=== PATIENT | male | born 1980 | race Caucasian/White ===

== ENCOUNTER 2017-03-06 16:22 | Emergency (ER) | payer OTHER ==
[2017-03-06 18:08] VITALS: BP 125/78
--- NOTE | 2017-03-06 20:44 | Emergency Department Report ---
ED Lower Extremity HPI - General Chief Complaint: Extremity Injury, Lower Stated Complaint: RT LEG PAIN Time Seen by Provider: 03/06/17 20:37 Source: patient, family Mode of arrival: Wheelchair Limitations: No Limitations - History of Present Illness Initial Comments: 36-year-old -[place]ames[place] male with a history of HIV positive history of neurofibromatosis and a history of herniated disc comes in today for complaint of right leg pain. Patient reports that he has been out of his gabapentin. Patient reports that the pain radiates down his right buttock and right posterior leg. Patient reports that the pain is severe. He was last seen by his surgeon which is Dr. Guillaume at [facility] was about a month ago. He reports that he is scheduled for surgery on 04/01/2017 for 2 cyst removal from his spine. MD Complaint: hip injury -: month(s) (1) Severity scale (0 -10): 10 Improves With: nothing Worsens With: movement - Related Data Previous Rx's Medication Instructions Recorded Last Taken Type Acetaminophen with Codeine 1 tab PO Q6HR PRN #20 tab 03/06/17 Unknown Rx [Acetaminophen-Codeine #4 TAB] Gabapentin [Neurontin] 300 mg PO Q8HR #90 capsule 03/06/17 Unknown Rx Allergies Allergy/AdvReac Type Severity Reaction Status Date / Time No Known Allergies Allergy Unverified 03/06/17 18:03 ED Review of Systems ROS: Stated complaint: RT LEG PAIN Other details as noted in HPI ED Past Medical Hx - Past Medical History Previous Medical History?: Yes Hx HIV: Yes Additional medical history: Herniated disc, Back pain, Neurofibromytosis lung disease - Surgical History Past Surgical History?: No - Social History Smoking Status: Former Smoker Substance Use Type: Alcohol, Prescribed - Medications Home Medications: Home Medications Medication Instructions Recorded Confirmed Last Taken Type Acetaminophen with Codeine 1 tab PO Q6HR PRN #20 tab 03/06/17 Unknown Rx [Acetaminophen-Codeine #4 TAB] Gabapentin [Neurontin] 300 mg PO Q8HR #90 capsule 03/06/17 Unknown Rx ED Physical Exam - General Limitations: No Limitations General appearance: alert, in no apparent distress, cachectic - Head Head exam: Present: atraumatic, normocephalic - Eye Eye exam: Present: normal appearance, EOMI - ENT ENT exam: Present: mucous membranes moist - Respiratory Respiratory exam: Present: normal lung sounds bilaterally - Cardiovascular Cardiovascular Exam: Present: regular rate, normal rhythm, normal heart sounds - GI/Abdominal GI/Abdominal exam: Present: soft. Absent: distended, tenderness - Expanded Back Exam Expanded Back exam: Sciatic Notch Tenderness: Right, Positive Straight Leg Raise: Right, Negative Straight Leg Raising: Left - Neurological Exam Neurological exam: Present: alert, oriented X3 - Psychiatric Psychiatric exam: Present: normal affect, normal mood - Skin Skin exam: Present: warm, dry, intact ED Course Vital Signs 03/06/17 18:04 Temperature 98.2 F Pulse Rate 82 Respiratory 18 Rate Blood Pressure 125/78 O2 Sat by Pulse 100 Oximetry ED Lower Extremity MDM - Medical Decision Making Patient has been interviewed and evaluated by this provider Christofer. Discussed patient that he needs to be followed up by pain management. We will give him a few Tylenol No. 3's for his pain refill his gabapentin and for him to keep his appointment with Dr. Guillaume at [facility] for his surgery on 04/01/2017. Patient verbalized understanding. Critical care attestation.: If time is entered above; I have spent that time in minutes in the direct care of this critically ill patient, excluding procedure time. ED Disposition Clinical Impression: HIV disease, Neurofibromatosis Herniated disc Qualifiers: Spinal region: lumbosacral Qualified Code(s): M51.27 - Other intervertebral disc displacement, lumbosacral region Disposition: DISCHARGED TO HOME OR SELFCARE Is pt being admited?: No Does the pt Need Aspirin: No Condition: Stable Instructions: Lumbar Radiculopathy (ED), Chronic Back Pain (ED) Additional Instructions: Please take pain medication as prescribed. Please do not operate heavy machinery while taking the Tylenol No. 4. Follow-up with your surgeon Dr. Guillaume at [facility] area keep your surgical appointment for 04/01/2017. Prescriptions: Acetaminophen with Codeine [Acetaminophen-Codeine #4 TAB] 1 tab PO Q6HR PRN #20 tab PRN Reason: Pain Gabapentin [Neurontin] 300 mg PO Q8HR #90 capsule Referrals: your,provider [Other] - 3-5 Days PRIMARY CARE, [Primary Care Provider] - 3-5 Days [facility] [Provider Group] - 3-5 Days PAIN SPECIALIST [facility] [place] [Provider Group] - 3-5 Days
[2017-03-06] MEDS: NORCO 7.5/325 PO ONE (21:17)
== END 2017-03-06 21:20 | disposition home or self-care (01) ==
LOC: ED 16:22
DX: B20 Human immunodeficiency virus [HIV] disease (principal); Q85.00 Neurofibromatosis, unspecified; M51.27 Other intervertebral disc displacement, lumbosacral region; Z87.891 Personal history of nicotine dependence
CPT/HCPCS: 99282

== ENCOUNTER 2017-08-20 15:00 | Emergency (ER) | payer MEDICARE, OTHER ==
[2017-08-20] MEDS ORDERED: TYLENOL PO ONE (15:19)
[2017-08-20] MEDS ORDERED: TYLENOL ONE (15:23)
[2017-08-20 15:37] LABS: Hematocrit 33.8 % (35.5-45.6); Mean Corpuscular HGB Conc 33 % (32-34); Mean Corpuscular Hemoglobin 29 pg (28-32); Mean Corpuscular Volume 88 fl (84-94); Platelet Count 339 K/mm3 (140-440); Red Blood Count 3.84 M/mm3 (3.65-5.03); Red Cell Distribution Width 16.8 % (13.2-15.2); White Blood Count 6.9 K/mm3 (4.5-11.0)
[2017-08-20 16:02] LABS: Anion Gap 16 mmol/L; BUN/Creatinine Ratio 11; Blood Urea Nitrogen 10 mg/dL (9-20); Calcium 8.7 mg/dL (8.4-10.2); Carbon Dioxide 23 mmol/L (22-30); Glucose 83 mg/dL (75-100); Potassium 3.2 mmol/L (3.6-5.0); Sodium 140 mmol/L (137-145)
[2017-08-20 18:55] LABS: Bacteria,Urine 1+ /HPF (Negative); Bilirubin,Urine NEG (Negative); Blood,Urine NEG (Negative); Ketones,Urine NEG (Negative); Leukocyte Esterase,Urine NEG (Negative); Nitrite,Urine NEG (Negative); Protein,Urine <15 mg/dL mg/dL (Negative)
[2017-08-20] MEDS ORDERED: ZOFRAN IV ONE (22:31)
[2017-08-20] MEDS ORDERED: DILAUDID IV ONE (22:31)
[2017-08-20] MEDS ORDERED: TORADOL IV ONE (22:31)
[2017-08-20 22:49] LABS: Magnesium 3.4 mg/dL (1.7-2.3)
[2017-08-21] MEDS ORDERED: NEURONTIN PO ONE (00:04)
[2017-08-21] MEDS ORDERED: DILAUDID IV ONE (00:04)
[2017-08-21] MEDS ORDERED: ATIVAN IV ONE (00:04)
--- NOTE | 2017-08-21 01:16 | Emergency Department Report ---
ED General Adult HPI - General Chief complaint: Pain General Stated complaint: NECK/BACK/LEG PAIN Time Seen by Provider: 08/20/17 22:19 Source: patient, EMS Mode of arrival: Wheelchair Limitations: No Limitations - History of Present Illness Initial comments: 36-year-old male with a past medical history of AIDS with last CD4 96 on 2016 presents to the hospital with complaints of pain all over. Patient complains of pain to back and legs. Patient have an intermittent spasms of right thigh. Patient has history of chronic pain and peripheral neuropathy and ran out of his Percocet and Neurontin yesterday. Patient persistently referring to a surgery which she had multiple cysts removed. Previous medical record reviewed and as per 08/02/2017 hospitalist discharge summary patient had a anterior and posterior fusion of his spine in 06/26/2017 And erosive esophagitis. Patient has neurofibromatosis with multiple skin lesions. Patient also complains of a bone to his right buttock. Severity scale (0 -10): 10 - Related Data Home Medications Medication Instructions Recorded Confirmed Last Taken Descovy 200-25 mg Tablet 1 tab PO DAILY 08/02/17 08/21/17 08/20/17 Prezcobix 800 mg-150 mg (Nf) 1 tab PO DAILY 08/02/17 08/21/17 08/20/17 Fluconazole 200 mg PO DAILY 08/21/17 08/21/17 08/21/17 Levetiracetam 750 mg PO BID 08/21/17 08/21/17 08/20/17 Previous Rx's Medication Instructions Recorded Last Taken Type Fluconazole [Diflucan TAB] 200 mg PO QDAY #14 tablet 08/03/17 08/20/17 Rx Bacitracin/Pramoxine/Aloe Vera 1 applicatio TP TID #1 oint...g. 08/21/17 Unknown Rx [Bacitraycin Plus Ointment] Cyclobenzaprine HCl [Flexeril 5 MG 5 mg PO TID PRN #20 tab 08/21/17 Unknown Rx TAB] Gabapentin [Neurontin] 300 mg PO Q8HR #90 capsule 08/21/17 Unknown Rx Ibuprofen [Motrin] 400 mg PO Q8H PRN #30 tablet 08/21/17 Unknown Rx oxyCODONE /ACETAMINOPHEN [Percocet 1 tab PO Q4HR #20 tab 08/21/17 Unknown Rx 5/325] Allergies Allergy/AdvReac Type Severity Reaction Status Date / Time No Known Allergies Allergy Unverified 03/06/17 18:03 ED Review of Systems ROS: Stated complaint: NECK/BACK/LEG PAIN Other details as noted in HPI Comment: All other systems reviewed and negative Other: Constitutional: No fevers chills Eyes: No eye pain visual changes or discharge ENT: No ear pain or throat pain Neck: Denies pain Respiratory: Denies cough wheezing shortness of breath Cardiovascular: Denies chest pain, palpitations, syncope Endocrine: Denies excessive sweating, intolerance to cold, increased thirst GI: Denies abdominal pain, nausea, vomiting, diarrhea, constipation, melena hematochezia : Denies dysuria, Musculoskeletal: As per HPI Skin: As per HPI Neurologic: Denies headache, numbness, weakness Psychiatric: Denies suicidal ideation, hallucinations ED Past Medical Hx - Past Medical History Hx Hypertension: No Hx CVA: No Hx Heart Attack/AMI: No Hx Congestive Heart Failure: No Hx Diabetes: No Hx Deep Vein Thrombosis: No Hx Pulmonary Embolism: No Hx GERD: No Hx Liver Disease: No (denies) Hx Renal Disease: No Hx Sickle Cell Disease: No Hx Arthritis: No Hx Headaches / Migraines: No Hx Seizures: No Hx Kidney Stones: No Hx Psychiatric Treatment: No Hx Asthma: No Hx COPD: No Hx Tuberculosis: No Hx Dementia: No Hx HIV: Yes Additional medical history: Herniated disc, Back pain, Neurofibromytosis lung disease (pt denies in lungs; he states he has never been told this)//had cyst removed from spine(2017) - Surgical History Additional Surgical History: CYCST REMOVAL FROM SPINE - Social History Smoking Status: Former Smoker Substance Use Type: None - Medications Home Medications: Home Medications Medication Instructions Recorded Confirmed Last Taken Type Descovy 200-25 mg Tablet 1 tab PO DAILY 08/02/17 08/21/17 08/20/17 History Prezcobix 800 mg-150 mg (Nf) 1 tab PO DAILY 08/02/17 08/21/17 08/20/17 History Fluconazole [Diflucan TAB] 200 mg PO QDAY #14 tablet 08/03/17 08/21/17 08/20/17 Rx Bacitracin/Pramoxine/Aloe Vera 1 applicatio TP TID #1 oint...g. 08/21/17 Unknown Rx [Bacitraycin Plus Ointment] Cyclobenzaprine HCl [Flexeril 5 MG 5 mg PO TID PRN #20 tab 08/21/17 Unknown Rx TAB] Fluconazole 200 mg PO DAILY 08/21/17 08/21/17 08/21/17 History Gabapentin [Neurontin] 300 mg PO Q8HR #90 capsule 08/21/17 Unknown Rx Ibuprofen [Motrin] 400 mg PO Q8H PRN #30 tablet 08/21/17 Unknown Rx Levetiracetam 750 mg PO BID 08/21/17 08/21/17 08/20/17 History oxyCODONE /ACETAMINOPHEN [Percocet 1 tab PO Q4HR #20 tab 08/21/17 Unknown Rx 5/325] ED Physical Exam - General Limitations: No Limitations - Other Other exam information: General: Generalized weakness, cachectic Head exam: Atraumatic, normocephalic Eyes exam: Normal appearance ENT: Moist mucous membrane Neck exam: Normal inspection, full range of motion, no meningismus nontender Respiratory exam: Clear to auscultation bilateral, no wheezes, rales, crackles Cardiovascular: Normal rate and rhythm, normal heart sounds Abdomen: Soft, nondistended, and nontender, with normal bowel sounds, no rebound, or guarding Extremity: With any movement patient repeatedly has spasms of his right thigh that are severe and intense. No erythema, warmth, or edema noted to the extremities. Back: Normal Inspection, full range of motion, no tenderness Neurologic: Alert, oriented x3, cranial nerves intact, no motor or sensory deficit Psychiatric: normal affect, normal mood Skin: 1 cm circular ulceration to the right upper buttock. Diffuse Neurofibromatosis lesions ED Course Vital Signs 08/20/17 08/20/17 08/20/17 15:13 15:50 18:23 Temperature 97.9 F Pulse Rate 106 H Respiratory 20 18 Rate Blood Pressure 143/91 Blood Pressure [Left] O2 Sat by Pulse 100 100 Oximetry 08/20/17 08/20/17 08/20/17 18:31 18:41 18:51 Temperature Pulse Rate Respiratory Rate Blood Pressure 132/86 132/86 132/86 Blood Pressure [Left] O2 Sat by Pulse 100 100 100 Oximetry 08/20/17 08/20/17 08/20/17 19:00 19:11 19:21 Temperature Pulse Rate Respiratory Rate Blood Pressure 124/74 124/74 124/74 Blood Pressure [Left] O2 Sat by Pulse 100 100 100 Oximetry 08/20/17 08/20/17 08/20/17 19:23 19:31 19:41 Temperature 98.1 F Pulse Rate 96 H Respiratory 16 Rate Blood Pressure 124/74 124/74 Blood Pressure 106/76 [Left] O2 Sat by Pulse 96 100 100 Oximetry 08/20/17 08/20/17 08/20/17 19:51 20:00 20:11 Temperature Pulse Rate Respiratory Rate Blood Pressure 124/74 126/81 126/81 Blood Pressure [Left] O2 Sat by Pulse 100 99 100 Oximetry 08/20/17 08/20/17 08/20/17 20:33 20:41 20:51 Temperature Pulse Rate Respiratory Rate Blood Pressure 126/81 126/81 126/81 Blood Pressure [Left] O2 Sat by Pulse 98 100 98 Oximetry 08/20/17 08/20/17 08/20/17 21:00 21:11 21:21 Temperature Pulse Rate Respiratory Rate Blood Pressure 126/77 126/77 126/81 Blood Pressure [Left] O2 Sat by Pulse 96 100 99 Oximetry 08/20/17 08/20/17 08/20/17 21:31 21:41 21:51 Temperature Pulse Rate Respiratory Rate Blood Pressure 126/81 126/81 126/81 Blood Pressure [Left] O2 Sat by Pulse 100 100 99 Oximetry 08/20/17 08/20/17 08/20/17 21:59 22:00 22:04 Temperature Pulse Rate Respiratory Rate Blood Pressure 126/77 127/78 126/77 Blood Pressure [Left] O2 Sat by Pulse 100 97 100 Oximetry 08/20/17 08/20/17 08/20/17 22:11 22:17 22:21 Temperature Pulse Rate Respiratory Rate Blood Pressure 127/78 127/78 127/78 Blood Pressure [Left] O2 Sat by Pulse 99 100 100 Oximetry 08/20/17 08/20/17 08/20/17 22:31 22:41 22:51 Temperature Pulse Rate Respiratory Rate Blood Pressure 127/78 127/78 127/78 Blood Pressure [Left] O2 Sat by Pulse 100 99 98 Oximetry 08/20/17 08/20/17 08/20/17 23:00 23:11 23:21 Temperature Pulse Rate Respiratory Rate Blood Pressure 131/79 131/79 131/79 Blood Pressure [Left] O2 Sat by Pulse 96 98 100 Oximetry 08/20/17 08/20/17 08/20/17 23:31 23:41 23:51 Temperature Pulse Rate Respiratory Rate Blood Pressure 131/79 131/79 131/79 Blood Pressure [Left] O2 Sat by Pulse 99 100 98 Oximetry 08/21/17 08/21/17 08/21/17 00:00 00:11 00:21 Temperature Pulse Rate Respiratory Rate Blood Pressure 119/70 119/70 119/70 Blood Pressure [Left] O2 Sat by Pulse 100 99 99 Oximetry 08/21/17 08/21/17 08/21/17 00:31 00:41 00:51 Temperature Pulse Rate Respiratory 20 Rate Blood Pressure 119/70 119/70 119/70 Blood Pressure [Left] O2 Sat by Pulse 98 100 99 Oximetry 08/21/17 01:00 Temperature Pulse Rate Respiratory Rate Blood Pressure 144/85 Blood Pressure [Left] O2 Sat by Pulse 100 Oximetry - Reevaluation(s) Reevaluation #1: 08/21/17 01:27 Patient improved after receiving Dilaudid and Ativan. Given Neurontin dose 08/21/17 01:27 ED Medical Decision Making - Lab Data Result diagrams: 08/20/17 15:23 08/20/17 15:23 Lab Results 08/20/17 08/20/17 08/20/17 Range/Units 15:23 15:23 15:23 WBC 6.9 (4.5-11.0) K/mm3 RBC 3.84 (3.65-5.03) M/mm3 Hgb 11.0 L (11.8-15.2) gm/dl Hct 33.8 L (35.5-45.6) % MCV 88 (84-94) fl MCH 29 (28-32) pg MCHC 33 (32-34) % RDW 16.8 H (13.2-15.2) % Plt Count 339 (140-440) K/mm3 Sodium 140 (137-145) mmol/L Potassium 3.2 L (3.6-5.0) mmol/L Chloride 104.0 (98-107) mmol/L Carbon Dioxide 23 (22-30) mmol/L Anion Gap 16 mmol/L BUN 10 (9-20) mg/dL Creatinine 0.9 (0.8-1.5) mg/dL Estimated GFR > 60 ml/min BUN/Creatinine Ratio 11 % Glucose 83 (75-100) mg/dL Calcium 8.7 (8.4-10.2) mg/dL Magnesium 3.40 H (1.7-2.3) mg/dL Total Creatine Kinase 196 H (55-170) units/L Urine Color (Yellow) Urine Turbidity (Clear) Urine pH (5.0-7.0) Ur Specific [place] (1.003-1.030) Urine Protein (Negative) mg/dL Urine Glucose (UA) (Negative) mg/dL Urine Ketones (Negative) mg/dL Urine Blood (Negative) Urine Nitrite (Negative) Urine Bilirubin (Negative) Urine Urobilinogen (<2.0) mg/dL Ur Leukocyte Esterase (Negative) Urine WBC (Auto) (0.0-6.0) /HPF Urine RBC (Auto) (0.0-6.0) /HPF Urine Bacteria (Auto) (Negative) /HPF 08/20/17 Range/Units 18:25 WBC (4.5-11.0) K/mm3 RBC (3.65-5.03) M/mm3 Hgb (11.8-15.2) gm/dl Hct (35.5-45.6) % MCV (84-94) fl MCH (28-32) pg MCHC (32-34) % RDW (13.2-15.2) % Plt Count (140-440) K/mm3 Sodium (137-145) mmol/L Potassium (3.6-5.0) mmol/L Chloride (98-107) mmol/L Carbon Dioxide (22-30) mmol/L Anion Gap mmol/L BUN (9-20) mg/dL Creatinine (0.8-1.5) mg/dL Estimated GFR ml/min BUN/Creatinine Ratio % Glucose (75-100) mg/dL Calcium (8.4-10.2) mg/dL Magnesium (1.7-2.3) mg/dL Total Creatine Kinase (55-170) units/L Urine Color Yellow (Yellow) Urine Turbidity Clear (Clear) Urine pH 5.0 (5.0-7.0) Ur Specific [place] 1.020 (1.003-1.030) Urine Protein <15 mg/dl (Negative) mg/dL Urine Glucose (UA) Neg (Negative) mg/dL Urine Ketones Neg (Negative) mg/dL Urine Blood Neg (Negative) Urine Nitrite Neg (Negative) Urine Bilirubin Neg (Negative) Urine Urobilinogen 2.0 (<2.0) mg/dL Ur Leukocyte Esterase Neg (Negative) Urine WBC (Auto) 2.0 (0.0-6.0) /HPF Urine RBC (Auto) 2.0 (0.0-6.0) /HPF Urine Bacteria (Auto) 1+ (Negative) /HPF - Medical Decision Making Patient be discharged home since symptoms secondary to chronic pain he rates a running out of his medication yesterday. Buttock wound does not appear to be infected. Local wound care will be recommended. Antibiotic ointment and dressing placed prior to discharge - Differential Diagnosis neuropathy, chronic pain, rhabdomyolysis, infection Critical Care Time: No Critical care attestation.: If time is entered above; I have spent that time in minutes in the direct care of this critically ill patient, excluding procedure time. ED Disposition Clinical Impression: Chronic pain, Peripheral neuropathy, AIDS, Hypokalemia, Clinical neurofibromatosis, Wound, open, buttock Disposition: DC-01 TO HOME OR SELFCARE Is pt being admited?: No Does the pt Need Aspirin: No Condition: Stable Instructions: Hypokalemia (ED), Chronic Pain (ED), Human Immunodeficiency Virus Transmission (ED), Peripheral Neuropathy (ED), Acute Wound Care (ED) Additional Instructions: Take the medication as prescribed. Follow-up with your doctor for further treatment. Your potassium was low. He received an oral dose of potassium here. Please increase your potassium through your diet as indicated by your discharge instructions. Return if symptoms worsen. Prescriptions: Bacitracin/Pramoxine/Aloe Vera [Bacitraycin Plus Ointment] 1 applicatio TP TID # 1 oint...g. Cyclobenzaprine HCl [Flexeril 5 MG TAB] 5 mg PO TID PRN #20 tab PRN Reason: Muscle Spasm Gabapentin [Neurontin] 300 mg PO Q8HR #90 capsule Ibuprofen [Motrin] 400 mg PO Q8H PRN #30 tablet PRN Reason: Pain oxyCODONE /ACETAMINOPHEN [Percocet 5/325] 1 tab PO Q4HR #20 tab Referrals: PRIMARY CARE, [Primary Care Provider] - 3-5 Days Time of Disposition: 01:14
[2017-08-21] MEDS ORDERED: TRIPLE ANTIBIOTIC TP ONE ×2 (01:28→03:25)
[2017-08-21 11:28] VITALS: BP 144/85
== END 2017-08-21 01:48 | disposition home or self-care (01) ==
LOC: ED 15:00
DX: S31.819A Unspecified open wound of right buttock, initial encounter (principal); G89.29 Other chronic pain; G62.9 Polyneuropathy, unspecified; E87.6 Hypokalemia; Q85.00 Neurofibromatosis, unspecified; B20 Human immunodeficiency virus [HIV] disease; Z87.891 Personal history of nicotine dependence; X58.XXXA Exposure to other specified factors, initial encounter; Y93.9 Activity, unspecified; Y99.9 Unspecified external cause status; Y92.9 Unspecified place or not applicable
CPT/HCPCS: 36415; 80048; 81001; 82550; 83735; 85027; 96374; 96375; 96376; 99284; J1170; J1885; J2060; J2405; A6250

== ENCOUNTER 2019-09-08 11:51 | Emergency (ER) | payer MEDICARE ==
--- NOTE | 2019-09-08 12:33 | Emergency Department Report ---
Blank Doc - Documentation Documentation: 39-year-old male that presents with URIs ymptoms. This initial assessment/diagnostic orders/clinical plan/treatment(s) is/are subject to change based on patient's health status, clinical progression and re- assessment by fellow clinical providers in the ED. Further treatment and workup at subsequent clinical providers discretion. Patient/guardians urged not to elope from the ED as their condition may be serious if not clinically assessed and managed. Initial orders include: 1- Patient sent to [facility] for further evaluation and treatment 2- xrays
[2019-09-08 12:34] VITALS: BP 149/90
--- NOTE | 2019-09-08 13:09 | XRay Report ---
CHEST 2 VIEWS INDICATION / CLINICAL INFORMATION: cough. COMPARISON: 09/27/2018 FINDINGS: SUPPORT DEVICES: None. HEART / MEDIASTINUM: No significant abnormality. LUNGS / PLEURA: Pleural based nodules along the right lateral chest are unchanged from prior imaging. Nodule in the right lower lobe is unchanged from previous exam. Pleural-based nodule in the right ap ex is also unchanged.No pneumothorax. ADDITIONAL FINDINGS: No significant additional findings. IMPRESSION: 1. Stable pleural-based nodules in the right chest and stable nodule right lower chest are noted. N o new abnormalities are identified. There has been no significant interval change. Signer Name: Daniel Kaur MD Signed: 09/08/2019 1:05 PM Workstation Name: [id number]
[2019-09-08] MEDS ORDERED: BENZONATATE 100 MG CAP PO ONE (14:37)
[2019-09-08] MEDS ORDERED: IPRATROPIUM/ALBUTEROL SULFATE 3 ML AMPUL.NEB IH ONE (14:37)
--- NOTE | 2019-09-08 14:59 | Emergency Department Report ---
HPI - General Chief Complaint: Upper Respiratory Infection Time Seen by Provider: 09/08/19 12:32 - HPI HPI: 39-year-old -[place] male, with a past medical history of HIV, seizures and neurofibromatosis, presents to the emergency department with a complaint of a 3 week history of a bad productive cough. He says that this has been going on since he got a flu shot. He tried some Mucinex for his symptoms without any relief. He does not have a primary care physician but follows up with a group called [facility] for infectious disease. No recent travel or sick contacts at home. He denies any chest pain, shortness of breath, nausea, vomi ting. He complains of a subjective fever last night. ED Past Medical Hx - Past Medical History Previous Medical History?: Yes Hx Hypertension: No Hx CVA: No Hx Heart Attack/AMI: No Hx Congestive Heart Failure: No Hx Diabetes: No Hx Deep Vein Thrombosis: No Hx Pulmonary Embolism: No Hx GERD: No Hx Liver Disease: (denies) Hx Renal Disease: No Hx Sickle Cell Disease: No Hx Arthritis: No Hx Headaches / Migraines: No Hx Seizures: Yes Hx Kidney Stones: No Hx Psychiatric Treatment: No Hx Asthma: No Hx COPD: No Hx Tuberculosis: No Hx Dementia: No Hx HIV: Yes Additional medical history: Neurofibromatosis - Surgical History Past Surgical History?: Yes Additional Surgical History: CYCST REMOVAL FROM SPINE - Social History Smoking Status: Never Smoker Substance Use Type: None - Medications Home Medications: Home Medications Medication Instructions Recorded Confirmed Last Taken Type Descovy 200-25 mg Tablet 1 tab PO DAILY 08/02/17 08/21/17 08/20/17 History Prezcobix 800 mg-150 mg (Nf) 1 tab PO DAILY 08/02/17 08/21/17 08/20/17 History Fluconazole [Diflucan TAB] 200 mg PO QDAY #14 tablet 08/03/17 08/21/17 08/20/17 Rx Bacitracin/Pramoxine/Aloe Vera 1 applicatio TP TID #1 oint...g. 08/21/17 U nknown Rx [Bacitraycin Plus Ointment] Cyclobenzaprine HCl [Flexeril 5 MG 5 mg PO TID PRN #20 tab 08/21/17 Unknown Rx TAB] Fluconazole 200 mg PO DAILY 08/21/17 08/21/17 08/21/17 History Gabapentin 300 mg PO Q8HR #90 capsule 08/21/17 Unknown Rx Ibuprofen [Motrin] 400 mg PO Q8H PRN #30 tablet 08/21/17 Unknown Rx Levetiracetam 750 mg PO BID 08/21/17 08/21/17 08/20/17 History oxyCODONE /ACETAMINOPHEN [Percocet 1 tab PO Q4HR #20 tab 08/21/17 Unknown Rx 5/325] Azithromycin [Zithromax Z-PHILIP] 250 mg PO DAILY #6 tablet 09/27/18 Unknown Rx levoFLOXacin [Levaquin TAB] 500 mg PO QDAY 7 Days #7 tablet 10/24/18 Unknown Rx predniSONE [Prednisone] 50 mg PO DAILY 5 Days #5 tablet 10/24/18 Unknown Rx ALBUTEROL Inhaler (OR & NICU) 2 puff IH QID PRN #1 device 09/08/19 Unknown Rx [ProAir HFA Inhaler] Benzonatate [Tessalon Perles] 100 mg PO Q8HR PRN #20 capsule 09/08/19 Unknown Rx guaiFENesin/CODEINE [Robitussin AC] 5 ml PO Q6H PRN #100 oral.liqd 09/08/19 Unknown Rx ED Review of Systems ROS: Stated complaint: BAD COUGH Other details as noted in HPI Comment: All other systems reviewed and negative Constitutional: chills, fever (subjective) Eyes: denies: eye pain, vision change ENT: denies: ear pain, throat pain Respiratory: cough. denies: shortness of breath Cardiovascular: denies: chest pain, edema Gastrointestinal: denies: abdominal pain, vomiting Musculoskeletal: denies: back pain, arthralgia Physical Exam - Physical Exam Vital Signs: Vital Signs 09/08/19 12:32 Temperature 98.9 F Pulse Rate 99 H Respiratory 20 Rate Blood Pressure 149/90 O2 Sat by Pulse 100 Oximetry Physical Exam: GENERAL: The patient is well-developed well-nourished. HENT: Normocephalic. Atraumatic. Patient has moist mucous membranes. EYES: Extraocular motions are intact. NECK: Supple. Trachea is midline. CHEST/LUNGS: A productive sounding cough is heard during examination. Mild expiratory wheezing. No tachypnea or accessory muscle use. There is no respiratory distress noted. HEART/CARDIOVASCULAR: Regular. There is no tachycardia. There is no murmur. ABDOMEN: Abdomen is soft, nontender. Patient has normal bowel sounds. There is no abdominal distention. SKIN: Skin is warm and dry. NEURO: The patient is awake, alert, and oriented. The patient is cooperative. The patient has no focal neurologic deficits. Normal speech. MUSCULOSKELETAL: There is no tenderness or deformity. There is no limitation range of motion. There is no evidence of acute injury. ED Course Vital Signs 09/08/19 12:32 Temperature 98.9 F Pulse Rate 99 H Respiratory 20 Rate Blood Pressure 149/90 O2 Sat by Pulse 100 Oximetry ED Medical Decision Making - Radiology Data Radiology results: image reviewed interpreted by me: Chest x-ray does not show any acute process. There are no pleural effusions, obvious pneumonia and there is no pneumothorax. - Medical Decision Making This patient presents with a three-week history of a productive cough that he says started after getting the flu shot. A chest x-ray was done that does not show any pneumonia, pleural effusions, pneumothorax, or any other acute process. Vital signs are stable including being afebrile. Patient was given a breathing treatment and a Tessalon Perle. Upon reevaluation he is feeling improved but does still have this productive cough. He'll be discharged home to follow-up with his primary care physician/infectious disease doctor. He will be given a prescription for Tessalon Perles, Robitussin-AC and an albuterol inhaler. He will return to the ER with any worsening of his symptoms or any acute distress. - Differential Diagnosis pneumonia, bronchitis, asthma, viral URI Critical Care Time: No Critical care attestation.: If time is entered above; I have spent that time in minutes in the direct care of this critically ill patient, excluding procedure time. ED Disposition Clinical Impression: Bronchitis, History of HIV infection Disposition: DC-01 TO HOME OR SELFCARE Is pt being admited?: No Condition: Stable Instructions: Acute Bronchitis (ED) Additional Instructions: Please follow-up with a primary care physician and your infectious disease physician. Return to the emergency Department with any worsening of your symptoms or any acute distress. You have been prescribed a medication that is sedating and therefore should not be taken prior to driving, working, and responsible for children and in no way should be mixed with alcohol of any quantity. Prescriptions: ALBUTEROL Inhaler (OR & NICU) [ProAir HFA Inhaler] 2 puff IH QID PRN #1 device PRN Reason: Shortness Of Breath guaiFENesin/CODEINE [Robitussin AC] 5 ml PO Q6H PRN #100 oral.liqd PRN Reason: Cough Benzonatate [Tessalon Perles] 100 mg PO Q8HR PRN #20 capsule PRN Reason: Cough Referrals: BETTY JENSEN [Other] - 2-3 Days Time of Disposition: 16:17
== END 2019-09-08 16:24 | disposition home or self-care (01) ==
LOC: ED 11:51
DX: J40 Bronchitis, not specified as acute or chronic (principal); B20 Human immunodeficiency virus [HIV] disease; Z79.899 Other long term (current) drug therapy; Z98.890 Other specified postprocedural states; Z88.6 Allergy status to analgesic agent
CPT/HCPCS: 71046; 94640; 94644

== ENCOUNTER 2019-09-15 09:42 | Emergency (ER) | payer MEDICARE ==
[2019-09-15 09:53] VITALS: BP 151/91
--- NOTE | 2019-09-15 11:05 | Emergency Department Report ---
- General Chief Complaint: Upper Respiratory Infection Stated Complaint: COUGHING Time Seen by Provider: 09/15/19 10:53 Source: patient Mode of arrival: Ambulatory Limitations: No Limitations - History of Present Illness Initial Comments: Patient is a 39-year-old [place] male with a past history of HIV and neurofibromatosis was presenting with 3 weeks of continuous cough. Patient was here 3 days ago for same symptoms. Patient States His Cough Began after Getting a Flu Shot Has Been Continuous for the Last 3 Weeks. Patient Was Diagnosed with Bronchitis 3 Days Ago Started on Cough Syrup Albuterol Inhaler. Patient States Is Been No Change in His Cough. Cough Is Productive of Yellow Green Sputum. Denies Fever Nausea Vomiting. Patient's Has Associated Body Aches. - Related Data Home Medications Medication Instructions Recorded Confirmed Last Taken Descovy 200-25 mg Tablet 1 tab PO DAILY 08/02/17 08/21/17 08/20/17 Prezcobix 800 mg-150 mg (Nf) 1 tab PO DAILY 08/02/17 08/21/17 08/20/17 Fluconazole 200 mg PO DAILY 08/21/17 08/21/17 08/21/17 Levetiracetam 750 mg PO BID 08/21/17 08/21/17 08/20/17 Previous Rx's Medication Instructions Recorded Last Taken Type Fluconazole [Diflucan TAB] 200 mg PO QDAY #14 tablet 08/03/17 08/20/17 Rx Bacitracin/Pramoxine/Aloe Vera 1 applicatio TP TID #1 oint...g. 08/21/17 Unknown Rx [Bacitraycin Plus Ointment] Cyclobenzaprine HCl [Flexeril 5 MG 5 mg PO TID PRN #20 tab 08/21/17 Unknown Rx TAB] Gabapentin 300 mg PO Q8HR #90 capsule 08/21/17 Unknown Rx Ibuprofen [Motrin] 400 mg PO Q8H PRN #30 tablet 08/21/17 Unknown Rx oxyCODONE /ACETAMINOPHEN [Percocet 1 tab PO Q4HR #20 tab 08/21/17 Unknown Rx 5/325] Azithromycin [Zithromax Z-PHILIP] 250 mg PO DAILY #6 tablet 09/27/18 Unknown Rx levoFLOXacin [Levaquin TAB] 500 mg PO QDAY 7 Days #7 tablet 10/24/18 Unknown Rx predniSONE [Prednisone] 50 mg PO DAILY 5 Days #5 tablet 10/24/18 Unknown Rx ALBUTEROL Inhaler (OR & NICU) 2 puff IH QID PRN #1 device 09/08/19 Unknown Rx [ProAir HFA Inhaler] Benzonatate [Tessalon Perles] 100 mg PO Q8HR PRN #20 capsule 09/08/19 Unknown Rx guaiFENesin/CODEINE [Robitussin AC] 5 ml PO Q6H PRN #100 oral.liqd 09/08/19 Unknown Rx Azithromycin [Zithromax Z-PHILIP] 250 mg PO DAILY #6 tablet 09/15/19 Unknown Rx Sulfamethoxazole/Trimethoprim 1 each PO BID #14 tablet 09/15/19 Unknown Rx [Bactrim DS TAB] guaiFENesin/CODEINE [Robitussin AC] 5 ml PO Q6HR PRN #100 oral.liqd 09/15/19 Unknown Rx predniSONE [Deltasone] 20 mg PO QDAY #5 tab 09/15/19 Unknown Rx Allergies Allergy/AdvReac Type Severity Reaction Status Date / Time tramadol [From Ultram] AdvReac Seizure Verified 10/24/18 14:56 ED Review of Systems ROS: Stated complaint: COUGHING Other details as noted in HPI Comment: All other systems reviewed and negative ED Past Medical Hx - Past Medical History Previous Medical History?: Yes Hx Hypertension: No Hx CVA: No Hx Heart Attack/AMI: No Hx Congestive Heart Failure: No Hx Diabetes: No Hx Deep Vein Thrombosis: No Hx Pulmonary Embolism: No Hx GERD: No Hx Liver Disease: (denies) Hx Renal Disease: No Hx Sickle Cell Disease: No Hx Arthritis: No Hx Headaches / Migraines: No Hx Seizures: Yes Hx Kidney Stones: No Hx Psychiatric Treatment: No Hx Asthma: No Hx COPD: No Hx Tuberculosis: No Hx Dementia: No Hx HIV: Yes Additional medical history: Neurofibromatosis - Surgical History Past Surgical History?: Yes Additional Surgical History: CYCST REMOVAL FROM SPINE - Social History Smoking Status: Never Smoker Substance Use Type: None - Medications Home Medications: Home Medications Medication Instructions Recorded Confirmed Last Taken Type Descovy 200-25 mg Tablet 1 tab PO DAILY 08/02/17 08/21/17 08/20/17 History Prezcobix 800 mg-150 mg (Nf) 1 tab PO DAILY 0908/21/17 08/20/17 History Fluconazole [Diflucan TAB] 200 mg PO QDAY #14 tablet 08/03/17 08/21/17 08/20/17 Rx Bacitracin/Pramoxine/Aloe Vera 1 applicatio TP TID #1 oint...g. 08/21/17 Unknown Rx [Bacitraycin Plus Ointment] Cyclobenzaprine HCl [Flexeril 5 MG 5 mg PO TID PRN #20 tab 08/21/17 Unknown Rx TAB] Fluconazole 200 mg PO DAILY 08/21/17 08/21/17 08/21/17 History Gabapentin 300 mg PO Q8HR #90 capsule 08/21/17 Unknown Rx Ibuprofen [Motrin] 400 mg PO Q8H PRN #30 tablet 08/21/17 Unknown Rx Levetiracetam 750 mg PO BID 08/21/17 08/21/17 08/20/17 History oxyCODONE /ACETAMINOPHEN [Percocet 1 tab PO Q4HR #20 tab 08/21/17 Unknown Rx 5/325] Azithromycin [Zithromax Z-PHILIP] 250 mg PO DAILY #6 tablet 09/27/18 Unknown Rx levoFLOXacin [Levaquin TAB] 500 mg PO QDAY 7 Days #7 tablet 10/24/18 Unknown Rx predniSONE [Prednisone] 50 mg PO DAILY 5 Days #5 tablet 10/24/18 Unknown Rx ALBUTEROL Inhaler (OR & NICU) 2 puff IH QID PRN #1 device 09/08/19 Unknown Rx [ProAir HFA Inhaler] Benzonatate [Tessalon Perles] 100 mg PO Q8HR PRN #20 capsule 09/08/19 Unknown Rx guaiFENesin/CODEINE [Robitussin AC] 5 ml PO Q6H PRN #100 oral.liqd 09/08/19 Unknown Rx Azithromycin [Zithromax Z-PHILIP] 250 mg PO DAILY #6 tablet 09/15/19 Unknown Rx Sulfamethoxazole/Trimethoprim 1 each PO BID #14 tablet 09/15/19 Unknown Rx [Bactrim DS TAB] guaiFENesin/CODEINE [Robitussin AC] 5 ml PO Q6HR PRN #100 oral.liqd 09/15/19 Unknown Rx predniSONE [Deltasone] 20 mg PO QDAY #5 tab 09/15/19 Unknown Rx ED Physical Exam - General Limitations: No Limitations General appearance: alert, in no apparent distress - Head Head exam: Present: atraumatic, normocephalic - Eye Eye exam: Present: normal appearance - ENT ENT exam: Present: mucous membranes moist - Neck Neck exam: Present: normal inspection - Respiratory Respiratory exam: Present: normal lung sounds bilaterally. Absent: respiratory distress, wheezes, rales, rhonchi - Cardiovascular Cardiovascular Exam: Present: regular rate, normal rhythm, normal heart sounds. Absent: systolic murmur, diastolic murmur, rubs, gallop - GI/Abdominal GI/Abdominal exam: Present: soft, normal bowel sounds. Absent: distended, tenderness, guarding, rebound - Rectal Rectal exam: Present: deferred - Extremities Exam Extremities exam: Present: normal inspection - Back Exam Back exam: Present: normal inspection - Neurological Exam Neurological exam: Present: alert, oriented X3 - Psychiatric Psychiatric exam: Present: normal affect, normal mood - Skin Skin exam: Present: warm, dry, intact, normal color. Absent: rash ED Course Vital Signs 09/15/19 09:51 Temperature 98.4 F Pulse Rate 107 H Respiratory 18 Rate Blood Pressure 151/91 O2 Sat by Pulse 95 Oximetry ED Medical Decision Making - Medical Decision Making Patient is a 39-year-old -[place] male with past medical history HIV who is presenting with a productive cough. Because of the duration of the patient's symptoms and because the patient is not improving with conservative treatment antibiotics will be added. Patient also has continuation of his cough syrup. Patient was started on short course of prednisone as well. Critical care attestation.: If time is entered above; I have spent that time in minutes in the direct care of this critically ill patient, excluding procedure time. ED Disposition Clinical Impression: Bronchitis Disposition: DC-01 TO HOME OR SELFCARE Is pt being admited?: No Does the pt Need Aspirin: No Condition: Stable Instructions: Chronic Bronchitis (ED) Time of Disposition: 11:05
== END 2019-09-15 14:00 | disposition home or self-care (01) ==
LOC: ED 09:42
DX: J40 Bronchitis, not specified as acute or chronic (principal)
CPT/HCPCS: 99281

== ENCOUNTER 2019-10-27 23:56 | Emergency (ER) | payer MEDICARE ==
[2019-10-28 00:12] VITALS: BP 143/75
== END 2019-10-28 05:00 | disposition left against medical advice (07) ==
LOC: ED 23:56
DX: R06.6 Hiccough (principal); Z53.21 Procedure and treatment not carried out due to patient leaving prior to being seen by health care provider

== ENCOUNTER 2019-10-29 11:32 | Emergency (ER) | payer MEDICARE ==
[2019-10-29 11:45] VITALS: BP 138/82
--- NOTE | 2019-10-29 12:22 | Emergency Department Report ---
ED Shortness of Breath HPI - General Chief Complaint: Dyspnea/Respdistress Stated Complaint: HICCUPS/LINDSAY Time Seen by Provider: 10/29/19 11:58 Source: patient Mode of arrival: Ambulatory Limitations: No Limitations - History of Present Illness Initial Comments: 39-year-old male with a history of HIV and recent diagnosis of COPD presents to the ER today complaining of productive cough, with yellow sputum, shortness of breath and wheezing and a cups for the past 2 weeks. He reports rhinorrhea and nasal congestion. He states that he was diagnosed as COPD about one week ago by his primary care doctor at the [facility]. He did mention his symptoms to his doctor at that time was prescribed Zithromax, and prednisone, and was started on albuterol MDIs. He states that he has completed the Zithromax and the prednisone, he felt like he was getting better, but his symptoms started to flareup again. He has been using his albuterol inhaler every 3 hours. He states the hiccups is what seems to be bothering him the most. He denies any CP, fever, chills, abdominal pain, nausea, vomiting or any other symptoms. He states he has been compliant with his HIV meds. His viral load undectable and his last CD4 count was 800 MD Complaint: shortness of breath, cough -: week(s) (2 weeks ) - Related Data Home Medications Medication Instructions Recorded Confirmed Last Taken Descovy 200-25 mg Tablet 1 tab PO DAILY 08/02/17 08/21/17 08/20/17 Prezcobix 800 mg-150 mg (Nf) 1 tab PO DAILY 08/02/17 08/21/17 08/20/17 Fluconazole 200 mg PO DAILY 08/21/17 08/21/17 08/21/17 Levetiracetam 750 mg PO BID 08/21/17 08/21/17 08/20/17 Previous Rx's Medication Instructions Recorded Last Taken Type Fluconazole [Diflucan TAB] 200 mg PO QDAY #14 tablet 08/03/17 08/20/17 Rx Bacitracin/Pramoxine/Aloe Vera 1 applicatio TP TID #1 oint...g. 08/21/17 Unknown Rx [Bacitraycin Plus Ointment] Cyclobenzaprine HCl [Flexeril 5 MG 5 mg PO TID PRN #20 tab 08/21/17 Unknown Rx TAB] Gabapentin 300 mg PO Q8HR #90 capsule 08/21/17 Unknown Rx Ibuprofen [Motrin] 400 mg PO Q8H PRN #30 tablet 08/21/17 Unknown Rx oxyCODONE /ACETAMINOPHEN [Percocet 1 tab PO Q4HR #20 tab 08/21/17 Unknown Rx 5/325] Azithromycin [Zithromax Z-PHILIP] 250 mg PO DAILY #6 tablet 09/27/18 Unknown Rx levoFLOXacin [Levaquin TAB] 500 mg PO QDAY 7 Days #7 tablet 10/24/18 Unknown Rx predniSONE [Prednisone] 50 mg PO DAILY 5 Days #5 tablet 10/24/18 Unknown Rx guaiFENesin/CODEINE [Robitussin AC] 5 ml PO Q6H PRN #100 oral.liqd 09/08/19 Unknown Rx Azithromycin [Zithromax Z-PHILIP] 250 mg PO DAILY #6 tablet 09/15/19 Unknown Rx Sulfamethoxazole/Trimethoprim 1 each PO BID #14 tablet 09/15/19 Unknown Rx [Bactrim DS TAB] guaiFENesin/CODEINE [Robitussin AC] 5 ml PO Q6HR PRN #100 oral.liqd 09/15/19 Unknown Rx ALBUTEROL Inhaler (OR & NICU) 2 puff IH QID PRN #1 device 10/29/19 Unknown Rx [ProAir HFA Inhaler] Benzonatate [Tessalon Perles] 100 mg PO Q8HR PRN #20 capsule 10/29/19 Unknown Rx chlorproMAZINE [Thorazine] 25 mg PO Q6H PRN #40 tab 10/29/19 Unknown Rx predniSONE [Deltasone] 60 mg PO QDAY 5 Days #15 tab 10/29/19 Unknown Rx Allergies Allergy/AdvReac Type Severity Reaction Status Date / Time tramadol [From Ultram] AdvReac Seizure Verified 10/24/18 14:56 ED Review of Systems ROS: Stated complaint: HICCUPS/LINDSAY Other details as noted in HPI Comment: All other systems reviewed and negative Constitutional: denies: chills, diaphoresis, fever, weakness ENT: congestion. denies: ear pain, throat pain Respiratory: cough, shortness of breath, wheezing Cardiovascular: denies: chest pain, dyspnea on exertion, orthopnea, edema, syncope Gastrointestinal: other (Hiccups). denies: nausea, vomiting, diarrhea, constipation Musculoskeletal: denies: back pain, arthralgia, myalgia Skin: denies: rash Neurological: denies: headache, weakness, numbness, paresthesias, confusion, abnormal gait, vertigo ED Past Medical Hx - Past Medical History Previous Medical History?: Yes Hx Hypertension: No Hx CVA: No Hx Heart Attack/AMI: No Hx Congestive Heart Failure: No Hx Diabetes: No Hx Deep Vein Thrombosis: No Hx Pulmonary Embolism: No Hx GERD: No Hx Liver Disease: (denies) Hx Renal Disease: No Hx Sickle Cell Disease: No Hx Arthritis: No Hx Headaches / Migraines: No Hx Seizures: Yes Hx Kidney Stones: No Hx Psychiatric Treatment: No Hx Asthma: No Hx COPD: Yes Hx Tuberculosis: No Hx Dementia: No Hx HIV: Yes Additional medical history: Neurofibromatosis - Surgical History Past Surgical History?: Yes Additional Surgical History: CYCST REMOVAL FROM SPINE - Social History Smoking Status: Former Smoker Substance Use Type: None - Medications Home Medications: Home Medications Medication Instructions Recorded Confirmed Last Taken Type Descovy 200-25 mg Tablet 1 tab PO DAILY 08/02/17 08/21/17 08/20/17 History Prezcobix 800 mg-150 mg (Nf) 1 tab PO DAILY 08/02/17 08/21/17 08/20/17 History Fluconazole [Diflucan TAB] 200 mg PO QDAY #14 tablet 08/03/17 08/21/17 08/20/17 Rx Bacitracin/Pramoxine/Aloe Vera 1 applicatio TP TID #1 oint...g. 08/21/17 Unknown Rx [Bacitraycin Plus Ointment] Cyclobenzaprine HCl [Flexeril 5 MG 5 mg PO TID PRN #20 tab 08/21/17 Unknown Rx TAB] Fluconazole 200 mg PO DAILY 08/21/17 08/21/17 08/21/17 History Gabapentin 300 mg PO Q8HR #90 capsule 08/21/17 Unknown Rx Ibuprofen [Motrin] 400 mg PO Q8H PRN #30 tablet 08/21/17 Unknown Rx Levetiracetam 750 mg PO BID 08/21/17 08/21/17 08/20/17 History oxyCODONE /ACETAMINOPHEN [Percocet 1 tab PO Q4HR #20 tab 08/21/17 Unknown Rx 5/325] Azithromycin [Zithromax Z-PHILIP] 250 mg PO DAILY #6 tablet 09/27/18 Unknown Rx levoFLOXacin [Levaquin TAB] 500 mg PO QDAY 7 Days #7 tablet 10/24/18 Unknown Rx predniSONE [Prednisone] 50 mg PO DAILY 5 Days #5 tablet 10/24/18 Unknown Rx guaiFENesin/CODEINE [Robitussin AC] 5 ml PO Q6H PRN #100 oral.liqd 09/08/19 Unknown Rx Azithromycin [Zithromax Z-PHILIP] 250 mg PO DAILY #6 tablet 09/15/19 Unknown Rx Sulfamethoxazole/Trimethoprim 1 each PO BID #14 tablet 09/15/19 Unknown Rx [Bactrim DS TAB] guaiFENesin/CODEINE [Robitussin AC] 5 ml PO Q6HR PRN #100 oral.liqd 09/15/19 Unknown Rx ALBUTEROL Inhaler (OR & NICU) 2 puff IH QID PRN #1 device 10/29/19 Unknown Rx [ProAir HFA Inhaler] Benzonatate [Tessalon Perles] 100 mg PO Q8HR PRN #20 capsule 10/29/19 Unknown Rx chlorproMAZINE [Thorazine] 25 mg PO Q6H PRN #40 tab 10/29/19 Unknown Rx predniSONE [Deltasone] 60 mg PO QDAY 5 Days #15 tab 10/29/19 Unknown Rx ED Physical Exam - General Limitations: No Limitations General appearance: alert, in no apparent distress, other (intermittent hiccups noted) - Head Head exam: Present: atraumatic, normocephalic - Eye Eye exam: Present: normal appearance, PERRL, EOMI - ENT ENT exam: Present: normal exam, normal orophraynx, mucous membranes moist - Neck Neck exam: Present: normal inspection, full ROM. Absent: meningismus - Respiratory Respiratory exam: Present: decreased breath sounds (mild). Absent: respiratory distress - Cardiovascular Cardiovascular Exam: Present: regular rate, normal rhythm, normal heart sounds - GI/Abdominal GI/Abdominal exam: Present: soft. Absent: tenderness - Skin Skin exam: Present: intact ED Course Vital Signs 10/29/19 10/29/19 11:36 13:23 Temperature 98.9 F Pulse Rate 97 H Pulse Rate [ 64 Posterior Throughout] Pulse Rate [ 86 Throughout] Respiratory 19 Rate Respiratory 12 Rate [Posterior Throughout] Respiratory 16 Rate [ Throughout] Blood Pressure 138/82 O2 Sat by Pulse 97 Oximetry ED Medical Decision Making - Radiology Data Radiology results: report reviewed Ordering Physician: JARRET REDDY Date of Service: 10/29/19 Procedure(s): XR chest routine 2V Accession Number(s): [id number] cc: JARRET REDDY Fluoro Time In Minutes: CHEST 2 VIEWS INDICATION: dyspnea/cough. COMPARISON: 09/08/2019 FINDINGS: Support devices: None. Heart: Within normal limits. Pulmonary vasculature: Normal. Lungs/pleura: No acute air space or interstitial disease. No pneumothorax. Additional findings: Right pleural-based nodules are unchanged. IMPRESSION: 1. No acute findings. Signer Name: Bruce West MD Signed: 10/29/2019 1:06 PM Workstation Name: [id number] Transcribed By: REF Dictated By: BRUCE WEST MD Electronically Authenticated By: BRUCE WEST MD Signed Date/Time: 10/29/19 1306 - Medical Decision Making Patient presents with cough, SOB, wheezing, and hiccups x 2 weeks. Patient reports SOB better after duoneb treatment. Breath sounds improved after tx. Hiccups still about the same after meds. Patient is not toxic appearing, no acute pain nor respiratory distress, he has no c/o chest pain, he is afebrile and remaining VS stable. He is neurologically intact. He appears well- hydrated. His x-ray shows nothing acute. Pt will be treated for bronchitis with prednisone, cough medication and albuterol. No indication for abx at this especially since he just completed a zpak about 1 week ago and negative cxr and nl VS. early treated with Thorazine for his hiccups. I do not suspect sepsis, cardiac etiology nor PE at this time. Discussed results, suspected dx and treatment plan with patient. Recommend f/u with PCP at [place]. Pt stable at this time for d/c. Critical care attestation.: If time is entered above; I have spent that time in minutes in the direct care of this critically ill patient, excluding procedure time. ED Disposition Clinical Impression: Bronchitis, Hiccups Disposition: DC-01 TO HOME OR SELFCARE Is pt being admited?: No Condition: Stable Instructions: Hiccups (ED), Acute Bronchitis (ED) Prescriptions: predniSONE [Deltasone] 60 mg PO QDAY 5 Days #15 tab ALBUTEROL Inhaler (OR & NICU) [ProAir HFA Inhaler] 2 puff IH QID PRN #1 device PRN Reason: Shortness Of Breath Benzonatate [Tessalon Perles] 100 mg PO Q8HR PRN #20 capsule PRN Reason: Cough chlorproMAZINE [Thorazine] 25 mg PO Q6H PRN #40 tab PRN Reason: Hiccups Referrals: PRIMARY CARE, [Primary Care Provider] - 3-5 Days Time of Disposition: 14:10
[2019-10-29] MEDS ORDERED: IPRATROPIUM/ALBUTEROL SULFATE 3 ML AMPUL.NEB IH ONE (12:25)
--- NOTE | 2019-10-29 13:11 | XRay Report ---
CHEST 2 VIEWS INDICATION: dyspnea/cough. COMPARISON: 09/08/2019 FINDINGS: Support devices: None. Heart: Within normal limits. Pulmonary vasculature: Normal. Lungs/pleura: No acute air space or interstitial disease. No pneumothorax. Additional findings: Right pleural-based nodules are unchanged. IMPRESSION: 1. No acute findings. Signer Name: Arjun Swift MD Signed: 10/29/2019 1:06 PM Workstation Name: [id number]
[2019-10-29] MEDS ORDERED: chlorproMAZINE 25 MG TAB PO ONE (13:25)
== END 2019-10-29 14:17 | disposition home or self-care (01) ==
LOC: ED 11:32
DX: J40 Bronchitis, not specified as acute or chronic (principal); R06.6 Hiccough; J44.9 Chronic obstructive pulmonary disease, unspecified; Z87.891 Personal history of nicotine dependence; Z79.899 Other long term (current) drug therapy; Z88.6 Allergy status to analgesic agent
CPT/HCPCS: 71046; 94640; Q0161

== ENCOUNTER 2021-03-03 12:21 | Emergency (ER) | payer MEDICARE ==
[2021-03-03 12:45] VITALS: BP 163/94
--- NOTE | 2021-03-03 14:24 | XRay Report ---
CHEST 2 VIEWS INDICATION: cough. COMPARISON: 10/29/2019. FINDINGS: Support devices: None. Heart: Within normal limits. Lungs/Pleura: Stable nodularity right base and right apex. No new infiltrate. No significant pleura l effusion. IMPRESSION: Stable chest. Signer Name: Olaf Emerson MD Signed: 03/03/2021 2:20 PM Workstation Name: [id number]
--- NOTE | 2021-03-03 14:38 | Emergency Department Report ---
Upper Respiratory HPI - HPI Chief Complaint: Upper Respiratory Infection Stated Complaint: COUGH X2 WEEKS Time Seen by Provider: 03/03/21 13:44 Duration: 2 weeks URI Symptoms: Rhinorrhea: No, Sore Throat: No, Ear Pain: No, Cough: Yes, Shortness of Breath: No, Sick Contacts: No, Unable to Take Fluids: No, Urine Output Abnormal: No, Listless Behavior: No Other History: This is a 40-year-old male nontoxic, well nourished in appearance, no acute signs of distress presents to the ED with c/o of dry nonproductive cough, rhinorrhea, nasal congestion x2 weeks. Patient denies any sick contacts. Patient denies any recent travels, long car, recent hospital stays. Patient denies any calf pain or calf tenderness. Patient denies any chest pain, short of breath, fever, chills, nausea, vomiting, hemoptysis, numbness, tingling, headache or stiff neck. - Home Meds and Allergies Home Medications: Home Medications Medication Instructions Recorded Confirmed Last Taken Descovy 200-25 mg Tablet 1 tab PO DAILY 08/02/17 08/21/17 08/20/17 Prezcobix 800 mg-150 mg (Nf) 1 tab PO DAILY 08/02/17 08/21/17 08/20/17 Fluconazole 200 mg PO DAILY 08/21/17 08/21/17 08/21/17 Levetiracetam 750 mg PO BID 08/21/17 08/21/17 08/20/17 Previous Rx's Medication Instructions Recorded Last Taken Type Fluconazole [Diflucan TAB] 200 mg PO QDAY #14 tablet 08/03/17 08/20/17 Rx Bacitracin/Pramoxine/Aloe Vera 1 applicatio TP TID #1 oint...g. 08/21/17 Unknown Rx [Bacitraycin Plus Ointment] Cyclobenzaprine HCl [Flexeril 5 MG 5 mg PO TID PRN #20 tab 08/21/17 Unknown Rx TAB] Gabapentin 300 mg PO Q8HR #90 capsule 08/21/17 Unknown Rx Ibuprofen [Motrin] 400 mg PO Q8H PRN #30 tablet 08/21/17 Unknown Rx oxyCODONE /ACETAMINOPHEN [Percocet 1 tab PO Q4HR #20 tab 08/21/17 Unknown Rx 5/325] Azithromycin [Zithromax Z-PHILIP] 250 mg PO DAILY #6 tablet 09/27/18 Unknown Rx levoFLOXacin [Levaquin TAB] 500 mg PO QDAY 7 Days #7 tablet 10/24/18 Unknown Rx predniSONE [Prednisone] 50 mg PO DAILY 5 Days #5 tablet 10/24/18 Unknown Rx guaiFENesin/CODEINE [Robitussin AC] 5 ml PO Q6H PRN #100 oral.liqd 09/08/19 Un known Rx Azithromycin [Zithromax Z-PHILIP] 250 mg PO DAILY #6 tablet 09/15/19 Unknown Rx Sulfamethoxazole/Trimethoprim 1 each PO BID #14 tablet 09/15/19 Unknown Rx [Bactrim DS TAB] guaiFENesin/CODEINE [Robitussin AC] 5 ml PO Q6HR PRN #100 oral.liqd 09/15/19 Unknown Rx Albuterol Mdi (or & Nicu Only) 2 puff IH QID PRN #1 device 10/29/19 Unknown Rx [ProAir HFA Inhaler] Benzonatate [Tessalon Perles] 100 mg PO Q8HR PRN #20 capsule 10/29/19 Unknown Rx chlorproMAZINE [Thorazine] 25 mg PO Q6H PRN #40 tab 10/29/19 Unknown Rx predniSONE [Deltasone] 60 mg PO QDAY 5 Days #15 tab 10/29/19 Unknown Rx Benzonatate [Tessalon Perles] 100 mg PO Q8HR PRN #12 capsule 03/03/21 Unknown Rx Fluticasone [Flonase] 1 spray NS QDAY #1 bottle 03/03/21 Unknown Rx Loratadine [Claritin] 10 mg PO DAILY #30 tablet 03/03/21 Unknown Rx Allergies/Adverse Reactions: Allergies Allergy/AdvReac Type Severity Reaction Status Date / Time tramadol [From Ultram] AdvReac Seizure Verified 10/24/18 14:56 ED Review of Systems ROS: Stated complaint: COUGH X2 WEEKS Other details as noted in HPI Comment: All other systems reviewed and negative Constitutional: denies: chills, fever Eyes: denies: eye pain, eye discharge, vision change ENT: denies: ear pain, throat pain Respiratory: cough. denies: shortness of breath, wheezing Cardiovascular: denies: chest pain, palpitations Endocrine: no symptoms reported Gastrointestinal: denies: abdominal pain, nausea, diarrhea Genitourinary: denies: urgency, dysuria Musculoskeletal: denies: back pain, joint swelling, arthralgia Skin: denies: rash, lesions Neurological: denies: headache, weakness, paresthesias Psychiatric: denies: anxiety, depression Hematological/Lymphatic: denies: easy bleeding, easy bruising ED Past Medical Hx - Past Medical History Hx Hypertension: No Hx CVA: No Hx Heart Attack/AMI: No Hx Congestive Heart Failure: No Hx Diabetes: No Hx Deep Vein Thrombosis: No Hx Pulmonary Embolism: No Hx GERD: No Hx Liver Disease: (denies) Hx Renal Disease: No Hx Sickle Cell Disease: No Hx Arthritis: No Hx Headaches / Migraines: No Hx Seizures: Yes Hx Kidney Stones: No Hx Psychiatric Treatment: No Hx Asthma: Yes Hx COPD: Yes Hx Tuberculosis: No Hx Dementia: No Hx HIV: Yes Additional medical history: Neurofibromatosis/ ALLERGRIES - Surgical History Additional Surgical History: CYCST REMOVAL FROM SPINE - Social History Smoking Status: Former Smoker Substance Use Type: None - Medications Home Medications: Home Medications Medication Instructions Recorded Confirmed Last Taken Type Descovy 200-25 mg Tablet 1 tab PO DAILY 08/02/17 08/21/17 08/20/17 History Prezcobix 800 mg-150 mg (Nf) 1 tab PO DAILY 08/02/17 08/21/17 08/20/17 History Fluconazole [Diflucan TAB] 200 mg PO QDAY #14 tablet 08/03/17 08/21/17 08/20/17 Rx Bacitracin/Pramoxine/Aloe Vera 1 applicatio TP TID #1 oint...g. 08/21/17 Unknown Rx [Bacitraycin Plus Ointment] Cyclobenzaprine HCl [Flexeril 5 MG 5 mg PO TID PRN #20 tab 08/21/17 Unknown Rx TAB] Fluconazole 200 mg PO DAILY 08/21/17 08/21/17 08/21/17 History Gabapentin 300 mg PO Q8HR #90 capsule 08/21/17 Unknown Rx Ibuprofen [Motrin] 400 mg PO Q8H PRN #30 tablet 08/21/17 Unknown Rx Levetiracetam 750 mg PO BID 08/21/17 08/21/17 08/20/17 History oxyCODONE /ACETAMINOPHEN [Percocet 1 tab PO Q4HR #20 tab 08/21/17 Unknown Rx 5/325] Azithromycin [Zithromax Z-PHILIP] 250 mg PO DAILY #6 tablet 09/27/18 Unknown Rx levoFLOXacin [Levaquin TAB] 500 mg PO QDAY 7 Days #7 tablet 10/24/18 Unknown Rx predniSONE [Prednisone] 50 mg PO DAILY 5 Days #5 tablet 10/24/18 Unknown Rx guaiFENesin/CODEINE [Robitussin AC] 5 ml PO Q6H PRN #100 oral.liqd 09/08/19 Unknown Rx Azithromycin [Zithromax Z-PHILIP] 250 mg PO DAILY #6 tablet 09/15/19 Unknown Rx Sulfamethoxazole/Trimethoprim 1 each PO BID #14 tablet 09/15/19 Unknown Rx [Bactrim DS TAB] guaiFENesin/CODEINE [Robitussin AC] 5 ml PO Q6HR PRN #100 oral.liqd 09/15/19 Unknown Rx Albuterol Mdi (or & Nicu Only) 2 puff IH QID PRN #1 device 10/29/19 Unknown Rx [ProAir HFA Inhaler] Benzonatate [Tessalon Perles] 100 mg PO Q8HR PRN #20 capsule 10/29/19 Unknown Rx chlorproMAZINE [Thorazine] 25 mg PO Q6H PRN #40 tab 10/29/19 Unknown Rx predniSONE [Deltasone] 60 mg PO QDAY 5 Days #15 tab 10/29/19 Unknown Rx Benzonatate [Tessalon Perles] 100 mg PO Q8HR PRN #12 capsule 03/03/21 Unknown Rx Fluticasone [Flonase] 1 spray NS QDAY #1 bottle 03/03/21 Unknown Rx Loratadine [Claritin] 10 mg PO DAILY #30 tablet 03/03/21 Unknown Rx ED Bronchiolitis Physical Exam - Exam General: Vital signs noted. No distress. Alert and acting appropriately. Neurologic: Alert and oriented, no deficits. Musculoskeletal: Unremarkable. ED Bronchiolitis Tests - Testing Testing: CXR: Normal/Negative ED Physical Exam - General Limitations: No Limitations General appearance: alert, in no apparent distress - Head Head exam: Present: atraumatic, normocephalic - Eye Eye exam: Present: normal appearance - ENT ENT exam: Present: normal exam, normal orophraynx - Neck Neck exam: Present: normal inspection, full ROM. Absent: tenderness, meningismus, lymphadenopathy - Respiratory Respiratory exam: Present: normal lung sounds bilaterally. Absent: respiratory distress, wheezes, rales, rhonchi, stridor, chest wall tenderness, accessory muscle use, decreased breath sounds, prolonged expiratory - Cardiovascular Cardiovascular Exam: Present: regular rate, normal rhythm, normal heart sounds. Absent: irregular rhythm, systolic murmur, diastolic murmur, rubs, gallop - Extremities Exam Extremities exam: Present: normal inspection, full ROM - Back Exam Back exam: Present: normal inspection, full ROM - Neurological Exam Neurological exam: Present: alert, oriented X3, normal gait - Psychiatric Psychiatric exam: Present: normal affect, normal mood - Skin Skin exam: Present: warm, dry, intact, normal color. Absent: rash ED Course Vital Signs 03/03/21 03/03/21 12:44 13:46 Temperature 98.5 F Pulse Rate 121 H 98 H Respiratory 22 18 Rate Blood Pressure 163/94 O2 Sat by Pulse 96 97 Oximetry - Reevaluation(s) Reevaluation #1: 03/03/21 14:34 Patient is speaking in full sentences with no signs of distress noted. ED Medical Decision Making - Radiology Data [facility] [address] [place] [address] XRay Report Signed Patient: DEBBIE MATHEW MR#: [id number] : 1980 Acct:[id number] Age/Sex: 40 / M ADM Date: 03/03/21 Loc: ED Attending Dr: Ordering Physician: DIDIER SMITH NP Date of Service: 03/03/21 Procedure(s): XR chest routine 2V Accession Number(s): [id number] cc: DIDIER SMITH NP Fluoro Time In Minutes: CHEST 2 VIEWS INDICATION: cough. COMPARISON: 10/29/2019. FINDINGS: Support devices: None. Heart: Within normal limits. Lungs/Pleura: Stable nodularity right base and right apex. No new infiltrate. No significant pleural effusion. IMPRESSION: Stable chest. Signer Name: Olaf Emerson MD Signed: 03/03/2021 2:20 PM Workstation Name: [email or web address] Transcribed By: ES Dictated By: Olaf Emerson MD Electronically Authenticated By: Olaf Emerson MD Signed Date/Time: 03/03/21 1420 DD/ 1419 TD/TT: - Medical Decision Making This is a 40-year-old male that presents with viral bronchitis. Patient is stable and was examined by me. Chest x-ray has been obtained and dictated by radiologist with normal exam. Patient is notified of x-ray results with no questions noted. Patient does not meet clinical concerns of COVID-19 but patient was instructed and educated on signs and symptoms and to self quarantine and seek medical attention as soon as possible if symptoms does occur. Vitals stable. Patient is nonfebrile and normal heart rate. Patient was instructed Fo llow-up with a primary care doctor in 3-5 days or if symptoms worsen and continue return to emergency room as soon as possible. At time time of discharge, the patient does not seem toxic or ill in appearance. No acute signs of distress noted. Patient agrees to discharge treatment plan of care. No further questions noted by the patient.nt. Critical care attestation.: If time is entered above; I have spent that time in minutes in the direct care of this critically ill patient, excluding procedure time. ED Disposition Clinical Impression: Viral bronchitis Disposition: DC-01 TO HOME OR SELFCARE Is pt being admited?: No Does the pt Need Aspirin: No Condition: Stable Instructions: Chronic Bronchitis (ED), Acute Bronchitis, Adult, [id number] Additional Instructions: Follow-up with a primary care doctor in 3-5 days or if symptoms worsen and continue return to emergency room as soon as possible. Prescriptions: Loratadine [Claritin] 10 mg PO DAILY #30 tablet Fluticasone [Flonase] 1 spray NS QDAY #1 bottle Benzonatate [Tessalon Perles] 100 mg PO Q8HR PRN #12 capsule PRN Reason: Cough Referrals: PRIMARY CAREMD [Referring] - 3-5 Days ROCAEL JO MD [Staff Physician] - 3-5 Days Time of Disposition: 14:36
== END 2021-03-03 16:30 | disposition home or self-care (01) ==
LOC: ED 12:21
DX: J20.8 Acute bronchitis due to other specified organisms (principal); B97.89 Other viral agents as the cause of diseases classified elsewhere; R56.9 Unspecified convulsions; J44.9 Chronic obstructive pulmonary disease, unspecified; Z98.890 Other specified postprocedural states; Z87.891 Personal history of nicotine dependence; Z79.899 Other long term (current) drug therapy; Z88.8 Allergy status to other drugs, medicaments and biological substances
CPT/HCPCS: 71046

== ENCOUNTER 2021-05-02 09:20 | Emergency (ER) | payer MEDICARE ==
[2021-05-02 09:44] VITALS: BP 148/86
--- NOTE | 2021-05-02 10:27 | Emergency Department Report ---
- General Chief Complaint: Dyspnea/Respdistress Stated Complaint: COUGH Time Seen by Provider: 05/02/21 10:20 Source: patient Mode of arrival: Ambulatory Limitations: No Limitations - History of Present Illness Initial Comments: 40-year-old -[place] male with a history of HIV and neurofibromatosis presents to the emergency room for 1 week history of cough. Patient states that he has had to use an inhaler more. He is taking Flonase as prescribed but ran out of his Claritin. Patient denies any fever chills no nausea no vomiting no chest pain or shortness of breath. Patient states no alleviating or aggravating factors. Patient states he has a follow-up appointment with his doctor next week. MD Complaint: cough, rhinorrhea, nasal congestion Onset/Timin -: week(s) Severity: moderate Improves With: nothing Worsens With: nothing Associated Symptoms: denies other symptoms, cough Treatments Prior to Arrival: none - Related Data Home Medications Medication Instructions Recorded Confirmed Last Taken Descovy 200-25 mg Tablet 1 tab PO DAILY 08/02/17 08/21/17 08/20/17 Prezcobix 800 mg-150 mg (Nf) 1 tab PO DAILY 08/02/17 08/21/17 08/20/17 Fluconazole 200 mg PO DAILY 08/21/17 08/21/17 08/21/17 Levetiracetam 750 mg PO BID 08/21/17 08/21/17 08/20/17 Previous Rx's Medication Instructions Recorded Last Taken Type Fluconazole [Diflucan TAB] 200 mg PO QDAY #14 tablet 08/03/17 08/20/17 Rx Bacitracin/Pramoxine/Aloe Vera 1 applicatio TP TID #1 oint...g. 08/21/17 Unknown Rx [Bacitraycin Plus Ointment] Cyclobenzaprine HCl [Flexeril 5 MG 5 mg PO TID PRN #20 tab 08/21/17 Unknown Rx TAB] Gabapentin 300 mg PO Q8HR #90 capsule 08/21/17 Unknown Rx Ibuprofen [Motrin] 400 mg PO Q8H PRN #30 tablet 08/21/17 Unknown Rx oxyCODONE /ACETAMINOPHEN [Percocet 1 tab PO Q4HR #20 tab 08/21/17 Unknown Rx 5/325] Azithromycin [Zithromax Z-PHILIP] 250 mg PO DAILY #6 tablet 09/27/18 Unknown Rx levoFLOXacin [Levaquin TAB] 500 mg PO QDAY 7 Days #7 tablet 10/24/18 Unknown Rx predniSONE [Prednisone] 50 mg PO DAILY 5 Days #5 tablet 10/24/18 Unknown Rx guaiFENesin/CODEINE [Robitussin AC] 5 ml PO Q6H PRN #100 oral.liqd 09/08/19 Unknown Rx Azithromycin [Zithromax Z-PHILIP] 250 mg PO DAILY #6 tablet 09/15/19 Unknown Rx Sulfamethoxazole/Trimethoprim 1 each PO BID #14 tablet 09/15/19 Unknown Rx [Bactrim DS TAB] guaiFENesin/CODEINE [Robitussin AC] 5 ml PO Q6HR PRN #100 oral.liqd 09/15/19 Unknown Rx Benzonatate [Tessalon Perles] 100 mg PO Q8HR PRN #20 capsule 10/29/19 Unknown Rx chlorproMAZINE [Thorazine] 25 mg PO Q6H PRN #40 tab 10/29/19 Unknown Rx predniSONE [Deltasone] 60 mg PO QDAY 5 Days #15 tab 10/29/19 Unknown Rx Benzonatate [Tessalon Perles] 100 mg PO Q8HR PRN #12 capsule 03/03/21 Unknown Rx Fluticasone [Flonase] 1 spray NS QDAY #1 bottle 03/03/21 Unknown Rx Loratadine [Claritin] 10 mg PO DAILY #30 tablet 03/03/21 Unknown Rx Albuterol Sulfate [Proventil Hfa] 2 puff IH QID PRN #1 hfa.aer.ad 05/02/21 Unknown Rx Erythromycin Base [Erythromycin 250 mg PO DAILY #6 capsule.dr 05/02/[address] Unknown Rx 250MG CAP DR] Loratadine [Allergy] 10 mg PO DAILY #30 tablet 05/02/21 Unknown Rx predniSONE [Deltasone] 20 mg PO QDAY #5 tab 05/02/21 Unknown Rx Allergies Allergy/AdvReac Type Severity Reaction Status Date / Time tramadol [From Ultram] AdvReac Seizure Verified 10/24/18 14:56 ED Review of Systems ROS: Stated complaint: COUGH Other details as noted in HPI Comment: All other systems reviewed and negative ENT: congestion Respiratory: cough ED Past Medical Hx - Past Medical History Previous Medical History?: Yes Hx Hypertension: No Hx CVA: No Hx Heart Attack/AMI: No Hx Congestive Heart Failure: No Hx Diabetes: No Hx Deep Vein Thrombosis: No Hx Pulmonary Embolism: No Hx GERD: No Hx Liver Disease: (denies) Hx Renal Disease: No Hx Sickle Cell Disease: No Hx Arthritis: No Hx Headaches / Migraines: No Hx Seizures: Yes Hx Kidney Stones: No Hx Psychiatric Treatment: No Hx Asthma: Yes Hx COPD: Yes Hx Tuberculosis: No Hx Dementia: No Hx HIV: Yes Additional medical history: Neurofibromatosis/ ALLERGRIES - Surgical History Past Surgical History?: Yes Additional Surgical History: CYCST REMOVAL FROM SPINE - Social History Smoking Status: Former Smoker Substance Use Type: None - Medications Home Medications: Home Medications Medication Instructions Recorded Confirmed Last Taken Type Descovy 200-25 mg Tablet 1 tab PO DAILY 08/02/17 08/21/17 08/20/17 History Prezcobix 800 mg-150 mg (Nf) 1 tab PO DAILY 08/02/17 08/21/17 08/20/17 History Fluconazole [Diflucan TAB] 200 mg PO QDAY #14 tablet 08/03/17 08/21/17 08/20/17 Rx Bacitracin/Pramoxine/Aloe Vera 1 applicatio TP TID #1 oint...g. 08/21/17 Unknown Rx [Bacitraycin Plus Ointment] Cyclobenzaprine HCl [Flexeril 5 MG 5 mg PO TID PRN #20 tab 08/21/17 Unknown Rx TAB] Fluconazole 200 mg PO DAILY 08/21/17 08/21/17 08/21/17 History Gabapentin 300 mg PO Q8HR #90 capsule 08/21/17 Unknown Rx Ibuprofen [Motrin] 400 mg PO Q8H PRN #30 tablet 08/21/17 Unknown Rx Levetiracetam 750 mg PO BID 08/21/17 08/21/17 08/20/17 History oxyCODONE /ACETAMINOPHEN [Percocet 1 tab PO Q4HR #20 tab 08/21/17 Unknown Rx 5/325] Azithromycin [Zithromax Z-PHILIP] 250 mg PO DAILY #6 tablet 09/27/18 Unknown Rx levoFLOXacin [Levaquin TAB] 500 mg PO QDAY 7 Days #7 tablet 10/24/18 Unknown Rx predniSONE [Prednisone] 50 mg PO DAILY 5 Days #5 tablet 10/24/18 Unknown Rx guaiFENesin/CODEINE [Robitussin AC] 5 ml PO Q6H PRN #100 oral.liqd 09/08/19 Unknown Rx Azithromycin [Zithromax Z-PHILIP] 250 mg PO DAILY #6 tablet 09/15/19 Unknown Rx Sulfamethoxazole/Trimethoprim 1 each PO BID #14 tablet 09/15/19 Unknown Rx [Bactrim DS TAB] guaiFENesin/CODEINE [Robitussin AC] 5 ml PO Q6HR PRN #100 oral.liqd 09/15/19 Unknown Rx Benzonatate [Tessalon Perles] 100 mg PO Q8HR PRN #20 capsule 10/29/19 Unknown Rx chlorproMAZINE [Thorazine] 25 mg PO Q6H PRN #40 tab 10/29/19 Unknown Rx predniSONE [Deltasone] 60 mg PO QDAY 5 Days #15 tab 10/29/19 Unknown Rx Benzonatate [Tessalon Perles] 100 mg PO Q8HR PRN #12 capsule 03/03/21 Unknown Rx Fluticasone [Flonase] 1 spray NS QDAY #1 bottle 03/03/21 Unknown Rx Loratadine [Claritin] 10 mg PO DAILY #30 tablet 03/03/21 Unknown Rx Albuterol Sulfate [Proventil Hfa] 2 puff IH QID PRN #1 hfa.aer.ad 05/02/21 Unknown Rx Erythromycin Base [Erythromycin 250 mg PO DAILY #6 capsule.dr 05/02/[address] Unknown Rx 250MG CAP [address]] Loratadine [Allergy] 10 mg PO DAILY #30 tablet 05/02/21 Unknown Rx predniSONE [Deltasone] 20 mg PO QDAY #5 tab 05/02/21 Unknown Rx ED Physical Exam - General Limitations: No Limitations General appearance: alert, in no apparent distress - Head Head exam: Present: atraumatic, normocephalic - Eye Eye exam: Present: normal appearance - ENT ENT exam: Present: mucous membranes moist, normal external ear exam - Neck Neck exam: Present: normal inspection, full ROM - Respiratory Respiratory exam: Present: normal lung sounds bilaterally. Absent: respiratory distress, wheezes, accessory muscle use - Cardiovascular Cardiovascular Exam: Present: regular rate, normal rhythm. Absent: systolic murmur, diastolic murmur, rubs, gallop - Extremities Exam Extremities exam: Present: normal inspection, full ROM - Back Exam Back exam: Present: normal inspection, full ROM, other (Cervical scar from surgery) - Neurological Exam Neurological exam: Present: alert, oriented X3 - Psychiatric Psychiatric exam: Present: normal affect, normal mood - Skin Skin exam: Present: warm, dry, other (Multiple neurofibromatosis lesions) ED Course Vital Signs 05/02/21 09:33 Temperature 99.0 F Pulse Rate 101 H Respiratory 17 Rate Blood Pressure 148/86 O2 Sat by Pulse 95 Oximetry ED Medical Decision Making - Medical Decision Making 40-year-old -[place] male with a history of HIV and neurofibromatosis presents to the emergency room for 1 week history of cough. Patient states that he has had to use an inhaler more. He is taking Flonase as prescribed but ran out of his Claritin. Patient denies any fever chills no nausea no vomiting no chest pain or shortness of breath. Patient states no alleviating or aggravating factors. Patient states he has a follow-up appointment with his doctor next week.. Will place patient on a Z-Philip, steroids and Claritin. Encourage patient to continue with Flonase increase his water intake and keep his appointment with this provider for next week. Critical care attestation.: If time is entered above; I have spent that time in minutes in the direct care of this critically ill patient, excluding procedure time. ED Disposition Clinical Impression: URI, acute Disposition: DC-01 TO HOME OR SELFCARE Is pt being admited?: No Does the pt Need Aspirin: No Condition: Stable Additional Instructions: Take medications as prescribed. Increase your water intake. Keep your appointment with your doctor for next week. Continue with your Flonase. Prescriptions: Loratadine [Allergy] 10 mg PO DAILY #30 tablet predniSONE [Deltasone] 20 mg PO QDAY #5 tab Erythromycin Base [Erythromycin 250MG CAP DR] 250 mg PO DAILY #6 capsule. Albuterol Sulfate [Proventil Hfa] 2 puff IH QID PRN #1 hfa.aer.ad PRN Reason: Wheezing Referrals: PRIMARY CARE, [Primary Care Provider] - 3-5 Days Your, primary care provider [Other] - 3-5 Days [facility] [Provider Group] - 3-5 Days Forms: Work/School Release Form(ED)
== END 2021-05-02 11:00 | disposition home or self-care (01) ==
LOC: ED 09:20
DX: J06.9 Acute upper respiratory infection, unspecified (principal); J44.9 Chronic obstructive pulmonary disease, unspecified; Z86.69 Personal history of other diseases of the nervous system and sense organs; Z87.891 Personal history of nicotine dependence; Z98.890 Other specified postprocedural states; Z88.6 Allergy status to analgesic agent; Z79.899 Other long term (current) drug therapy
CPT/HCPCS: 99282

== ENCOUNTER 2021-11-21 11:08 | Emergency (ER) | payer MEDICARE ==
[2021-11-21] MEDS ORDERED: BENZONATATE 100 MG CAP PO ONE (12:03)
[2021-11-21] MEDS ORDERED: DEXAMETHASONE 4 MG TAB PO ONE (12:03)
--- NOTE | 2021-11-21 12:07 | Emergency Department Report ---
HPI - General Chief Complaint: Upper Respiratory Infection Time Seen by Provider: 11/21/21 11:58 - HPI HPI: 41-year-old -Italian male presents to the emergency department with a complaint of a 2-week history of a mixed dry and productive cough. He denies any fever, chills, shortness of breath, nausea, vomiting, back pain, chest pain or diaphoresis. He has a history of COPD and recurrent bronchitis. He has not oxygen dependent at home. He denies any current tobacco or illicit drug use. No recent travel or sick contacts at home. He has not taken anything for symptoms prior to presentation today. He does have a primary care physician, Dr. Diaz, for follow-up but has not seen them regarding the symptoms. He is vaccinated for COVID-19. ED Past Medical Hx - Past Medical History Previous Medical History?: Yes Hx Hypertension: No Hx CVA: No Hx Heart Attack/AMI: No Hx Congestive Heart Failure: No Hx Diabetes: No Hx Deep Vein Thrombosis: No Hx Pulmonary Embolism: No Hx GERD: No Hx Liver Disease: (denies) Hx Renal Disease: No Hx Sickle Cell Disease: No Hx Arthritis: No Hx Headaches / Migraines: No Hx Seizures: Yes Hx Kidney Stones: No Hx Psychiatric Treatment: No Hx Asthma: Yes Hx COPD: Yes Hx Tuberculosis: No Hx Dementia: No Hx HIV: Yes Additional medical history: Neurofibromatosis/ ALLERGRIES - Surgical History Past Surgical History?: Yes Additional Surgical History: CYCST REMOVAL FROM SPINE - Social History Smoking Status: Former Smoker Substance Use Type: None - Medications Home Medications: Home Medications Medication Instructions Recorded Confirmed Last Taken Type Descovy 200-25 mg Tablet 1 tab PO DAILY 08/02/17 08/21/17 08/20/17 History Prezcobix 800 mg-150 mg (Nf) 1 tab PO DAILY 08/02/17 08/21/17 08/20/17 History Fluconazole [Diflucan TAB] 200 mg PO QDAY #14 tablet 08/03/17 08/21/17 08/20/17 Rx Bacitracin/Pramoxine/Aloe Vera 1 applicatio TP TID #1 oint...g. 08/21/17 Unknown Rx [Bacitraycin Plus Ointment] Cyclobenzaprine HCl [Flexeril 5 MG 5 mg PO TID PRN #20 tab 08/21/17 Unknown Rx TAB] Fluconazole 200 mg PO DAILY 08/21/17 08/21/17 08/21/17 History Gabapentin 300 mg PO Q8HR #90 capsule 08/21/17 Unknown Rx Ibuprofen [Motrin] 400 mg PO Q8H PRN #30 tablet 08/21/17 Unknown Rx Levetiracetam 750 mg PO BID 08/21/17 08/21/17 08/20/17 History oxyCODONE /ACETAMINOPHEN [Percocet 1 tab PO Q4HR #20 tab 08/21/17 Unknown Rx 5/325] Azithromycin [Zithromax Z-PHILIP] 250 mg PO DAILY #6 tablet 09/27/18 Unknown Rx levoFLOXacin [Levaquin TAB] 500 mg PO QDAY 7 Days #7 tablet 10/24/18 Unknown Rx predniSONE [Prednisone] 50 mg PO DAILY 5 Days #5 tablet 10/24/18 Unknown Rx guaiFENesin/CODEINE [Robitussin AC] 5 ml PO Q6H PRN #100 oral.liqd 09/08/19 Unknown Rx Azithromycin [Zithromax Z-PHILIP] 250 mg PO DAILY #6 tablet 09/15/19 Unknown Rx Sulfamethoxazole/Trimethoprim 1 each PO BID #14 tablet 09/15/19 Unknown Rx [Bactrim DS TAB] guaiFENesin/CODEINE [Robitussin AC] 5 ml PO Q6HR PRN #100 oral.liqd 09/15/19 Unknown Rx Benzonatate [Tessalon Perles] 100 mg PO Q8HR PRN #20 capsule 10/29/19 Unknown Rx chlorproMAZINE [Thorazine] 25 mg PO Q6H PRN #40 tab 10/29/19 Unknown Rx predniSONE [Deltasone] 60 mg PO QDAY 5 Days #15 tab 10/29/19 Unknown Rx Benzonatate [Tessalon Perles] 100 mg PO Q8HR PRN #12 capsule 03/03/21 Unknown Rx Fluticasone [Flonase] 1 spray NS QDAY #1 bottle 03/03/21 Unknown Rx Loratadine [Claritin] 10 mg PO DAILY #30 tablet 03/03/21 Unknown Rx Erythromycin Base [Erythromycin 250 mg PO DAILY #6 capsule.dr 05/02/21 Unknown Rx 250MG CAP DR] Loratadine [Allergy] 10 mg PO DAILY #30 tablet 05/02/21 Unknown Rx predniSONE [Deltasone] 20 mg PO QDAY #5 tab 05/02/21 Unknown Rx Albuterol Sulfate [Proventil Hfa] 2 puff IH QID PRN #1 hfa.aer.ad 11/21/21 Unknown Rx Benzonatate [Tessalon Perles] 100 mg PO Q8HR PRN #20 cap 11/21/21 Unknown Rx ED Review of Systems ROS: Stated complaint: COUGHING FOR TWO WEEKS Other details as noted in HPI Comment: All other systems reviewed and negative Constitutional: denies: chills, fever Eyes: denies: eye pain, vision change ENT: denies: ear pain, throat pain Respiratory: cough. denies: shortness of breath Cardiovascular: denies: chest pain, palpitations Gastrointestinal: denies: abdominal pain, vomiting Genitourinary: denies: dysuria, discharge Musculoskeletal: denies: back pain, arthralgia Skin: denies: rash, lesions Neurological: denies: headache, weakness Physical Exam - Physical Exam Vital Signs: Vital Signs 11/21/21 11:52 Temperature 98 F Pulse Rate 102 H Respiratory 16 Rate Blood Pressure 127/82 [Left] O2 Sat by Pulse 100 Oximetry Physical Exam: GENERAL: The patient is well-developed well-nourished. HENT: Normocephalic. Atraumatic. Patient has moist mucous membranes. EYES: Extraocular motions are intact. NECK: Supple. Trachea is midline. CHEST/LUNGS: Mild expiratory wheezing. A dry cough heard during examination with coughing fits. No tachypnea or accessory muscle use. HEART/CARDIOVASCULAR: Regular. There is no tachycardia. There is no murmur. ABDOMEN: Abdomen is soft, nontender. Patient has normal bowel sounds. SKIN: Skin is warm and dry. NEURO: The patient is awake, alert, and oriented. The patient is cooperative. Normal speech. MUSCULOSKELETAL: There is no tenderness or deformity. There is no limitation range of motion. ED Course Vital Signs 11/21/21 11:52 Temperature 98 F Pulse Rate 102 H Respiratory 16 Rate Blood Pressure 127/82 [Left] O2 Sat by Pulse 100 Oximetry ED Medical Decision Making - Radiology Data Radiology results: report reviewed CHEST 2 VIEWS INDICATION / CLINICAL INFORMATION: cough STUDY TIME: 1212 COMPARISON: 03/03/2021 FINDINGS: SUPPORT DEVICES: None. HEART / MEDIASTINUM: No significant abnormality. LUNGS / PLEURA: Chronic changes are again seen in the lung rowe bilaterally similar to prior study. Presumably is density in the right lateral base and right lateral mid hemithorax on prior study are stable. No pleural effusions are seen. There appears to be a mild increase in interstitial markings fairly diffusely in both lung bases which could represent progression of chronic change though mild interstitial edema/infiltrate is not excluded. I do not see areas of consolidation. Follow-up may be useful. No pneumothorax. ADDITIONAL FINDINGS: No significant additional findings. - Medical Decision Making This patient presents to the emergency department with a 2-week history of a mixed dry and productive cough with coughing fits. He has some mild expiratory wheezing but otherwise does not appear in any respiratory or acute distress. He does have some audible dry sounding coughs with coughing fits. Chest x-ray shows chronic and/or stable appearance of some interstitial changes and a right lower lobe pulmonary nodule. Patient was given a dose of Decadron and a Tessalon Perle. He will be discharged home with an albuterol inhaler, Tessalon Perles, and will continue to use his Qvar. He has been instructed to follow-up with his primary care physician and return to the emergency department with any worsening of his symptoms or with any acute distress. Critical Care Time: No Critical care attestation.: If time is entered above; I have spent that time in minutes in the direct care of this critically ill patient, excluding procedure time. ED Disposition Clinical Impression: Bronchitis, Pulmonary nodule Disposition: 01 HOME / SELF CARE / HOMELESS Is pt being admited?: No Condition: Stable Instructions: Pulmonary Nodule, Acute Bronchitis, Adult, Chronic Bronchitis (ED) Additional Instructions: Please follow-up with your primary care physician in the next few days. Take all medications as prescribed. Return to the emergency department with any worsening of your symptoms, new or concerning symptoms not addressed during this current emergency department visit, or with any acute distress. Prescriptions: Albuterol Sulfate [Proventil Hfa] 2 puff IH QID PRN #1 hfa.aer.ad PRN Reason: Wheezing Benzonatate [Tessalon Perles] 100 mg PO Q8HR PRN #20 cap PRN Reason: Cough Referrals: Primary Care Physician, Your [Other] - 2-3 Days Time of Disposition: 12:29
--- NOTE | 2021-11-21 12:24 | XRay Report ---
CHEST 2 VIEWS INDICATION / CLINICAL INFORMATION: cough STUDY TIME: 1212 COMPARISON: 03/03/2021 FINDINGS: SUPPORT DEVICES: None. HEART / MEDIASTINUM: No significant abnormality. LUNGS / PLEURA: Chronic changes are again seen in the lung rowe bilaterally similar to prior study. Presumably is density in the right lateral base and right lateral mid hemithorax on prior study are stable. No pleural effusions are seen. There appears to be a mild increase in interstitial markings f airly diffusely in both lung bases which could represent progression of chronic change though mild in terstitial edema/infiltrate is not excluded. I do not see areas of consolidation. Follow-up may be us eful. No pneumothorax. ADDITIONAL FINDINGS: No significant additional findings. Signer Name: Zaki Hitchcock MD Signed: 11/21/2021 12:20 PM Workstation Name: [id number]
[2021-11-21 13:40] VITALS: BP 136/86
== END 2021-11-21 13:40 | disposition home or self-care (01) ==
LOC: ED 11:08
DX: J40 Bronchitis, not specified as acute or chronic (principal); R91.1 Solitary pulmonary nodule; Z87.891 Personal history of nicotine dependence
CPT/HCPCS: 71046; 99283; J8540

== ENCOUNTER 2021-11-29 10:27 | Emergency (ER) | payer MEDICARE ==
[2021-11-29 10:31] VITALS: BP 150/87
--- NOTE | 2021-11-29 10:59 | Emergency Department Report ---
ED General Adult HPI - General Chief complaint: Medical Clearance Stated complaint: HICCUPS X 5D PUI?: No Time Seen by Provider: 11/29/21 10:54 Source: patient Mode of arrival: Ambulatory Limitations: No Limitations - History of Present Illness Initial comments: 41-year-old presented to the ED complaining of hiccups x5 days after taking benzonatate for cough. He states that his hiccups are intermittent throughout the day. Patient is alert and oriented. Hiccup noticed during examination. No acute distress noted. No ill appearance noted. Denies any shortness of breath chest pain. Nausea vomiting or diarrhea. Patient stated that he was previous treated for bronchitis with antibiotics steroids x5 days ago. Onset/Timin -: days(s) Severity scale (0 -10): 0 Associated Symptoms: denies other symptoms Treatments Prior to Arrival: none - Related Data Home Medications Medication Instructions Recorded Confirmed Last Taken Descovy 200-25 mg Tablet 1 tab PO DAILY 08/02/17 08/21/17 08/20/17 Prezcobix 800 mg-150 mg (Nf) 1 tab PO DAILY 08/02/17 08/21/17 08/20/17 Fluconazole 200 mg PO DAILY 08/21/17 08/21/17 08/21/17 Levetiracetam 750 mg PO BID 08/21/17 08/21/17 08/20/17 Previous Rx's Medication Instructions Recorded Last Taken Type Fluconazole [Diflucan TAB] 200 mg PO QDAY #14 tablet 08/03/17 08/20/17 Rx Bacitracin/Pramoxine/Aloe Vera 1 applicatio TP TID #1 oint...g. 08/21/17 Unknown Rx [Bacitraycin Plus Ointment] Cyclobenzaprine HCl [Flexeril 5 MG 5 mg PO TID PRN #20 tab 08/21/17 Unknown Rx TAB] Gabapentin 300 mg PO Q8HR #90 capsule 08/21/17 Unknown Rx Ibuprofen [Motrin] 400 mg PO Q8H PRN #30 tablet 08/21/17 Unknown Rx oxyCODONE /ACETAMINOPHEN [Percocet 1 tab PO Q4HR #20 tab 08/21/17 Unknown Rx 5/325] Azithromycin [Zithromax Z-PHILIP] 250 mg PO DAILY #6 tablet 09/27/18 Unknown Rx levoFLOXacin [Levaquin TAB] 500 mg PO QDAY 7 Days #7 tablet 10/24/18 Unknown Rx predniSONE [Prednisone] 50 mg PO DAILY 5 Days #5 tablet 10/24/18 Unknown Rx guaiFENesin/CODEINE [Robitussin AC] 5 ml PO Q6H PRN #100 oral.liqd 09/08/19 Unknown Rx Azithromycin [Zithromax Z-PHILIP] 250 mg PO DAILY #6 tablet 09/15/19 Unknown Rx Sulfamethoxazole/Trimethoprim 1 each PO BID #14 tablet 09/15/19 Unknown Rx [Bactrim DS TAB] guaiFENesin/CODEINE [Robitussin AC] 5 ml PO Q6HR PRN #100 oral.liqd 09/15/19 Unknown Rx Benzonatate [Tessalon Perles] 100 mg PO Q8HR PRN #20 capsule 10/29/19 Unknown Rx chlorproMAZINE [Thorazine] 25 mg PO Q6H PRN #40 tab 10/29/19 Unknown Rx predniSONE [Deltasone] 60 mg PO QDAY 5 Days #15 tab 10/29/19 Unknown Rx Benzonatate [Tessalon Perles] 100 mg PO Q8HR PRN #12 capsule 03/03/21 Unknown Rx Fluticasone [Flonase] 1 spray NS QDAY #1 bottle 03/03/21 Unknown Rx Loratadine [Claritin] 10 mg PO DAILY #30 tablet 03/03/21 Unknown Rx Erythromycin Base [Erythromycin 250 mg PO DAILY #6 capsule.dr 05/02/21 Unknown Rx 250MG CAP DR] Loratadine [Allergy] 10 mg PO DAILY #30 tablet 05/02/21 Unknown Rx predniSONE [Deltasone] 20 mg PO QDAY #5 tab 05/02/21 Unknown Rx Albuterol Sulfate [Proventil Hfa] 2 puff IH QID PRN #1 hfa.aer.ad 11/21/21 Unknown Rx Benzonatate [Tessalon Perles] 100 mg PO Q8HR PRN #20 cap 11/21/21 Unknown Rx Baclofen [Lioresal] 10 mg PO TID 7 Days #21 tab 11/29/21 Unknown Rx Allergies Allergy/AdvReac Type Severity Reaction Status Date / Time tramadol [From Ultram] AdvReac Seizure Verified 12/13/18 14:56 ED Review of Systems ROS: Stated complaint: HICCUPS X 5D Other details as noted in HPI Constitutional: denies: chills, fever Eyes: denies: eye pain, eye discharge, vision change ENT: denies: ear pain, throat pain Respiratory: denies: cough, shortness of breath, wheezing Cardiovascular: denies: chest pain, palpitations Endocrine: no symptoms reported Gastrointestinal: denies: abdominal pain, nausea, diarrhea Genitourinary: denies: urgency, dysuria Musculoskeletal: denies: back pain, joint swelling, arthralgia Skin: denies: rash, lesions Neurological: denies: headache, weakness, paresthesias Psychiatric: denies: anxiety, depression Hematological/Lymphatic: denies: easy bleeding, easy bruising ED Past Medical Hx - Past Medical History Hx Hypertension: No Hx CVA: No Hx Heart Attack/AMI: No Hx Congestive Heart Failure: No Hx Diabetes: No Hx Deep Vein Thrombosis: No Hx Pulmonary Embolism: No Hx GERD: No Hx Liver Disease: (denies) Hx Renal Disease: No Hx Sickle Cell Disease: No Hx Arthritis: No Hx Headaches / Migraines: No Hx Seizures: Yes Hx Kidney Stones: No Hx Psychiatric Treatment: No Hx Asthma: Yes Hx COPD: Yes Hx Tuberculosis: No Hx Dementia: No Hx HIV: Yes Additional medical history: Neurofibromatosis/ ALLERGRIES - Surgical History Additional Surgical History: CYCST REMOVAL FROM SPINE - Social History Smoking Status: Former Smoker Substance Use Type: None - Medications Home Medications: Home Medications Medication Instructions Recorded Confirmed Last Taken Type Descovy 200-25 mg Tablet 1 tab PO DAILY 08/02/17 08/21/17 08/20/17 History Prezcobix 800 mg-150 mg (Nf) 1 tab PO DAILY 08/02/17 08/21/17 08/20/17 History Fluconazole [Diflucan TAB] 200 mg PO QDAY #14 tablet 08/03/17 08/21/17 08/20/17 Rx Bacitracin/Pramoxine/Aloe Vera 1 applicatio TP TID #1 oint...g. 08/21/17 Unknown Rx [Bacitraycin Plus Ointment] Cyclobenzaprine HCl [Flexeril 5 MG 5 mg PO TID PRN #20 tab 08/21/17 Unknown Rx TAB] Fluconazole 200 mg PO DAILY 08/21/17 08/21/1708/21/17 History Gabapentin 300 mg PO Q8HR #90 capsule 08/21/17 Unknown Rx Ibuprofen [Motrin] 400 mg PO Q8H PRN #30 tablet 08/21/17 Unknown Rx Levetiracetam 750 mg PO BID 08/21/17 08/21/17 08/20/17 History oxyCODONE /ACETAMINOPHEN [Percocet 1 tab PO Q4HR #20 tab 08/21/17 Unknown Rx 5/325] Azithromycin [Zithromax Z-PHILIP] 250 mg PO DAILY #6 tablet 09/27/18 Unknown Rx levoFLOXacin [Levaquin TAB] 500 mg PO QDAY 7 Days #7 tablet 10/24/18 Unknown Rx predniSONE [Prednisone] 50 mg PO DAILY 5 Days #5 tablet 10/24/18 Unknown Rx guaiFENesin/CODEINE [Robitussin AC] 5 ml PO Q6H PRN #100 oral.liqd 09/08/19 Unknown Rx Azithromycin [Zithromax Z-PHILIP] 250 mg PO DAILY #6 tablet 09/15/19 Unknown Rx Sulfamethoxazole/Trimethoprim 1 each PO BID #14 tablet 09/15/19 Unknown Rx [Bactrim DS TAB] guaiFENesin/CODEINE [Robitussin AC] 5 ml PO Q6HR PRN #100 oral.liqd 09/15/19 Unknown Rx Benzonatate [Tessalon Perles] 100 mg PO Q8HR PRN #20 capsule 10/29/19 Unknown Rx chlorproMAZINE [Thorazine] 25 mg PO Q6H PRN #40 tab 10/29/19 Unknown Rx predniSONE [Deltasone] 60 mg PO QDAY 5 Days #15 tab 10/29/19 Unknown Rx Benzonatate [Tessalon Perles] 100 mg PO Q8HR PRN #12 capsule 03/03/21 Unknown Rx Fluticasone [Flonase] 1 spray NS QDAY #1 bottle 03/03/21 Unknown Rx Loratadine [Claritin] 10 mg PO DAILY #30 tablet 03/03/21 Unknown Rx Erythromycin Base [Erythromycin 250 mg PO DAILY #6 capsule.dr 05/02/21 Unknown Rx 250MG CAP DR] Loratadine [Allergy] 10 mg PO DAILY #30 tablet 05/02/21 Unknown Rx predniSONE [Deltasone] 20 mg PO QDAY #5 tab 05/02/21 Unknown Rx Albuterol Sulfate [Proventil Hfa] 2 puff IH QID PRN #1 hfa.aer.ad 11/21/21 Unknown Rx Benzonatate [Tessalon Perles] 100 mg PO Q8HR PRN #20 cap 11/21/21 Unknown Rx Baclofen [Lioresal] 10 mg PO TID 7 Days #21 tab 11/29/21 Unknown Rx ED Physical Exam - General Limitations: No Limitations General appearance: alert, in no apparent distress - Head Head exam: Present: atraumatic, normocephalic - Eye Eye exam: Present: normal appearance - ENT ENT exam: Present: mucous membranes moist - Neck Neck exam: Present: normal inspection - Respiratory Respiratory exam: Present: normal lung sounds bilaterally. Absent: respiratory distress, wheezes - Cardiovascular Cardiovascular Exam: Present: regular rate, normal rhythm. Absent: systolic murmur, diastolic murmur, rubs, gallop - GI/Abdominal GI/Abdominal exam: Present: soft, normal bowel sounds - Rectal Rectal exam: Present: deferred - Extremities Exam Extremities exam: Present: normal inspection - Back Exam Back exam: Present: normal inspection - Neurological Exam Neurological exam: Present: alert, oriented X3 - Psychiatric Psychiatric exam: Present: normal affect, normal mood - Skin Skin exam: Present: warm, dry, intact, normal color. Absent: rash ED Course Vital Signs 11/29/21 10:31 Temperature 98 F Pulse Rate 94 H Respiratory 16 Rate Blood Pressure 150/87 [Right] O2 Sat by Pulse 98 Oximetry ED Medical Decision Making - Medical Decision Making 41-year-old presented to the ED complaining of hiccups x5 days after taking benzonatate for cough. He states that his hiccups are intermittent throughout the day. Patient is alert and oriented. Hiccup noticed during examination. No acute distress noted. No ill appearance noted. Denies any shortness of breath chest pain. Nausea vomiting or diarrhea. Patient stated that he was previous treated for bronchitis with antibiotics steroids x5 days ago. Explain patient to stop taking benzonatate . Discussed plan and data with patient. Patient to to follow-up with PCP or return to ED for worsening symptoms Critical care attestation.: If time is entered above; I have spent that time in minutes in the direct care of this critically ill patient, excluding procedure time. ED Disposition Clinical Impression: Hiccup, Normal physical exam Disposition: 01 HOME / SELF CARE / HOMELESS Is pt being admited?: No Does the pt Need Aspirin: No Condition: Stable Instructions: Basics of Medicine Management, Hiccups, Medical Screening Exam Additional Instructions: Stop taking medication benzonatate Drink plenty of fluids Return to ED for any worsening or new symptoms Follow-up with primary care doctor in 3 to 5 days Prescriptions: Baclofen [Lioresal] 10 mg PO TID 7 Days #21 tab Referrals: [facility] [Provider Group] - 3-5 Days Time of Disposition: 11:01
== END 2021-11-29 11:59 | disposition home or self-care (01) ==
LOC: ED 10:27
DX: R06.6 Hiccough (principal); Z00.00 Encounter for general adult medical examination without abnormal findings; J45.909 Unspecified asthma, uncomplicated; J44.9 Chronic obstructive pulmonary disease, unspecified; Z98.890 Other specified postprocedural states; Z87.891 Personal history of nicotine dependence; Z88.5 Allergy status to narcotic agent
CPT/HCPCS: 99282